=== PATIENT | female | born 1950 | race Caucasian/White ===

== ENCOUNTER → 2019-11-12 13:57 | Outpatient (BNVA) | payer OTHER, SELFPAY | PROVIDERS: Referring Provider Dermatology; Visit Provider Dermatology | DX: Z12.83 Encounter for screening for malignant neoplasm of skin (principal); Z85.828 Personal history of other malignant neoplasm of skin; L91.8 Other hypertrophic disorders of the skin; L82.1 Other seborrheic keratosis; L57.0 Actinic keratosis; L81.4 Other melanin hyperpigmentation | CPT/HCPCS: 17000; 17110; 99203 ==

== ENCOUNTER → 2019-11-27 12:02 | Outpatient (BNVA) | payer MEDICARE, SELFPAY | PROVIDERS: Visit Provider Nurse Practitioner | DX: R35.0 Frequency of micturition (principal) | CPT/HCPCS: 81000; 87086 ==

== ENCOUNTER 2022-04-15 17:35 | Emergency (ER) | payer MEDICARE, SELFPAY ==
[2022-04-15 17:39] VITALS: BP 160/97; PULSE 96; RESP 16; TEMP 36.7; O2SAT 97
--- NOTE | 2022-04-15 18:17 | USR_ITS ---
PROCEDURE INFORMATION: Exam: US Abdomen, Limited; Right Upper Quadrant Exam date and time: 04/15/2022 6:29 PM Age: 71 years old Clinical indication: Abdominal pain; Generalized; Additional info: Hyperbilirubinemia and vomiting TECHNIQUE: Imaging protocol: Real time ultrasound of the abdomen with image documentation. Limited exam focused on the right upper quadrant. COMPARISON: No relevant prior studies available. FINDINGS: Liver: Hepatic steatosis. 16 mm hepatic cysts. Gallbladder: Cholelithiasis. Biliary ducts: Common bile duct dilated to 11 mm, MRCP could further evaluate this. Pancreas: 2.4 cm hypoechoic pancreatic head mass, consider further evaluation with a contrast infused CT abdomen and pelvis. Right kidney: Normal. No mass. No hydronephrosis. US/US gall bladder [id number] IMPRESSION: 1. 2.4 cm hypoechoic pancreatic head mass, consider further evaluation with a contrast infused CT abdomen and pelvis. 2. Common bile duct dilated to 11 mm, MRCP could further evaluate this. 3. Hepatic steatosis. 4. Cholelithiasis. 5. 16 mm hepatic cysts.
--- NOTE | 2022-04-15 18:17 | CTR_ITS ---
PROCEDURE INFORMATION: Exam: CT Abdomen And Pelvis With Contrast Exam date and time: 04/15/2022 7:18 PM Age: 71 years old Clinical indication: Abdominal pain; Additional info: Hyperbilirubinemia and vomiting TECHNIQUE: Imaging protocol: Computed tomography of the abdomen and pelvis with contrast. Radiation optimization: All CT scans at this facility use at least one of these dose optimization techniques: automated exposure control; mA and/or kV adjustment per patient size (includes targeted exams where dose is matched to clinical indication); or iterative reconstruction. Contrast material: OMNI 350; Contrast volume: 100 ml; Contrast route: INTRAVENOUS (IV); REPORTING DATA: Count of CT and Cardiac NM exams in prior 12 months: This patient has received 0 known CTs and 0 known cardiac nuclear medicine studies in the 12 months prior to the current study. COMPARISON: US gall bladder [id number] 04/15/2022 6:29 PM RADIATION DOSE METRICS: Total DLP (mGy-cm): 811.3 FINDINGS: Liver: Normal. No mass. Gallbladder and bile ducts: Gallbladder is dilated with cholelithiasis. Pancreas: 27 mm pancreatic head mass with associated intra and extrahepatic biliary dilation, likely reflecting a pancreatic malignancy. This appears to contact the duodenum in stomach. Pancreatic duct is also mildly dilated. Spleen: Normal. No splenomegaly. Adrenal glands: Normal. No mass. Kidneys and ureters: Normal. No hydronephrosis. Stomach and bowel: Diverticulosis without diverticulitis. Appendix: No evidence of appendicitis. Intraperitoneal space: Unremarkable. No free air. No significant fluid collection. Vasculature: Unremarkable. No abdominal aortic aneurysm. Lymph nodes: Unremarkable. No enlarged lymph nodes. Urinary bladder: Unremarkable as visualized. Reproductive: Unremarkable as visualized. Bones/joints: T11 vertebral body likely chronic compression fracture without retropulsion of bony fragments. Soft tissues: Unremarkable. CT/CT abdomen pelvis w con* [id number] IMPRESSION: 1. 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 This appears to contact the duodenum in stomach. Pancreatic duct is also mildly dilated. 2. Gallbladder is dilated with cholelithiasis. 3. Diverticulosis without diverticulitis. 4. T11 vertebral body likely chronic compression fracture without retropulsion of bony fragments.
[2022-04-15 18:23] LABS: Basophils % 0.6 %; Eosinophils # 0.1 10^3/uL (0.0-0.8); Eosinophils % 0.9 %; Hematocrit 41.8 % (37.0-47.0); Hemoglobin 13.5 g/dL (11.5-15.3); Lymphocytes # 1.4 10^3/uL (0.8-4.8); Lymphocytes % 26.3 %; Mean Corpuscular HGB Conc 32.3 g/dL (30.0-36.0); Mean Corpuscular Hemoglobin 29.3 pg (28.0-34.0); Mean Corpuscular Volume 90.9 fl (81-99); Mean Platelet Volume 9.6 fL (7.4-10.4); Monocytes # 0.4 10^3/uL (0.2-0.9); Monocytes % 6.9 %; Neutrophils # 3.48 10^3/uL (1.8-7.7); Neutrophils % 64.7 %; Nucleated Red Blood Cells % 0 %; Platelet Count 204 10^3/cmm (130-400); Red Cell Distribution Width 14.9 % (12.1-15.1); White Blood Count 5.4 10^3/uL (4.0-10.0)
--- NOTE | 2022-04-15 18:30 | ED_ITS ---
HPI - Recheck/Abnormal Lab/Rx General: Chief Complaint: Recheck/Abnormal Lab/Rx Stated Complaint: abnormal labs Time Seen by Provider: 04/15/22 18:02 Source: patient History of Present Illness: 71-year-old female with several days of not feeling well, nausea, vomiting, and some epigastric discomfort on and off. The last 2 to 3 days, she has had a melanotic stools. No fever. She was seen in urgent care, and then told to come here due to abnormal labs . Initial visit (ago): day(s) ( several ) Initial visit for: other Returns today for: called because of abnormal lab/test Symptoms since prior visit: no new symptoms Context: called for abnormal lab result Review of Systems Const: Denies: fever(s) Eyes: Denies: change in vision ENMT: Denies: throat pain Card: Denies: chest pain or palpitations Resp: Denies: dyspnea, productive cough or non-productive cough GI: Reports: abdominal pain (Epigastric), nausea, vomiting, heartburn and early satiety; Denies: coffee ground emesis, diarrhea or hematochezia PFSH ED PFSH: Family History Other CAD (coronary artery disease) Dementia Hypertension Social History Smoking and tobacco status: never smoked Alcohol intake: current Alcohol intake frequency: few times a month Physical Exam Const: COMMON NORMALS: no acute distress GENERAL APPEARANCE: cooperative; not ill appearing and not frail appearing HENMT: COMMON NORMALS: normocephalic, atraumatic and Normal external nose present HEAD & SCALP: normocephalic and atraumatic FACE & SINUS: normal facial exam and face symmetric NOSE: Normal external nose present Eye: COMMON NORMALS: Equal, round and reactive pupils present and EOMs intact bilaterally PUPIL: Yes Equal, round and reactive pupils present Neck/C-Spine: GENERAL: Yes trachea midline Chest: CHEST: Yes Symmetrical chest wall rise Resp: COMMON NORMALS: normal respiratory effort, No retractions, No use of accessory muscles and clear to auscultation bilaterally AUSCULTATION: clear to auscultation bilaterally Cardio: COMMON NORMALS: regular rate and regular rhythm RATE: regular rate RHYTHM: regular rhythm GI: COMMON NORMALS: Normal to inspection, nondistended, normoactive bowel sounds present PALPATION: Yes Tenderness to palpation present (GI) (mild epigastric) Extremity: COMMON NORMALS: no pedal edema Neuro: [place] COMA SCALE: document GCS findings [place] coma scale eye opening: Spontaneous [place] coma scale verbal response: Orientated [place] coma scale motor response: Obey commands [place] coma scale total score: 15 SENSORY EXAM: Yes extremities (intact) Psych: COMMON NORMALS: speech normal SPEECH: Yes normal speech Skin: COMMON NORMALS: no rashes or lesions noted GENERAL SKIN EXAM: no rashes or lesions noted Course Vital Signs: Vital signs: Vital Signs Temperature 98.0 F 04/15/22 17:39 Pulse Rate 81 04/15/22 22:00 Respiratory Rate 16 04/15/22 22:00 Blood Pressure 141/87 04/15/22 22:00 Pulse Oximetry 94 04/15/22 22:00 Oxygen Delivery Me thod 04/15/22 17:39 MDM - Recheck/Abnormal Lab/Rx Medical Decision Making CBC is normal. CMP shows a bilirubin of 5.6, AST and ALT are mildly elevated. Alk phos is 371. Lipase is normal at 16. The patient has a 27 mm pancreatic head mass with associated intra and extrahepatic biliary dilatation. We do not have gastroenterology or hepatology at this institution. She was counseled on her diagnosis. With evidence of obstruction, she may need biliary stenting. We will attempt transfer to a larger [facility] where this could be possible. Patient's vital signs remained stable. Currently blood pressure 141/87, heart rate 85, saturations 95% on room air. The patient is comfortable. She has not had any vomiting here. She has received 4 mg of Zofran, and ice chips. We have called multiple facilities including [facility], [facility], and [facility] in [place] no beds are available. I spoke with the ER physician at [address] [facility] [place]. Their ER is open, and they are willing to take the patient. They have the se rvices available needed. We are unable to transport by air, due to weather conditions. She will go by ground transport when EMS is available. Lab Data 04/15/22 18:11 Radiology Impressions Abdomen/Pelvis CT 04/15/22 18:17 IMPRESSION: 1. 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 This appears to contact the duodenum in stomach. Pancreatic duct is also mildly dilated. 2. Gallbladder is dilated with cholelithiasis. 3. Diverticulosis without diverticulitis. 4. T11 vertebral body likely chronic compression fracture without retropulsion of bony fragments. Gallbladder Ultrasound 04/15/22 18:17 IMPRESSION: 1. 2.4 cm hypoechoic pancreatic head mass, consider further evaluation with a contrast infused CT abdomen and pelvis. 2. Common bile duct dilated to 11 mm, MRCP could further evaluate this. 3. Hepatic steatosis. 4. Cholelithiasis. 5. 16 mm hepatic cysts. Laboratory Results WBC 5.4 10^3/uL (4.0-10.0) 04/15/22 18:11 RBC 4.60 10^6/uL (4.1-5.3) 04/15/22 18:11 Hgb 13.5 g/dL (11.5-15.3) 04/15/22 18:11 Hct 41.8 % (37.0-47.0) 04/15/22 18:11 MCV 90.9 fl (81-99) 04/15/22 18:11 MCH 29.3 pg (28.0-34.0) 04/15/22 18:11 MCHC 32.3 g/dL (30.0-36.0) 04/15/22 18:11 RDW 14.9 % (12.1-15.1) 04/15/22 18:11 Plt Count 204 10^3/cmm (130-400) 04/15/22 18:11 MPV 9.6 fL (7.4-10.4) 04/15/22 18:11 Neut % (Auto) 64.7 % 04/15/22 18:11 Lymph % (Auto) 26.3 % 04/15/22 18:11 [place] % (Auto) 6.9 % 04/15/22 18:11 Eos % (Auto) 0.9 % 04/15/22 18:11 Baso % (Auto) 0.6 % 04/15/22 18:11 Neut # (Auto) 3.48 10^3/uL (1.8-7.7) 04/15/22 18:11 Lymph # (Auto) 1.4 10^3/uL (0.8-4.8) 04/15/22 18:11 [place] # (Auto) 0.4 10^3/uL (0.2-0.9) 04/15/22 18:11 Eos # (Auto) 0.1 10^3/uL (0.0-0.8) 04/15/22 18:11 Baso # (Auto) 0.0 10^3/uL (0.0-0.1) 04/15/22 18:11 Nucleated RBC % (auto) 0 % 04/15/22 18:11 Nucleated RBCs # 0.0 /100WBC 04/15/22 18:11 PT 12.10 SECONDS (12.1-14.9) 04/15/22 18:11 INR 0.87 (0.8-1.2) 04/15/22 18:11 APTT 26.6 SECONDS (23.9-36.7) 04/15/22 18:11 Sodium 136 mmol/L (136-145) 04/15/22 18:11 Potassium 3.6 mmol/L (3.5-5.1) 04/15/22 18:11 Chloride 98 mmol/L (98-107) 04/15/22 18:11 Carbon Dioxide 25 mmol/L (22-29) 04/15/22 18:11 Anion Gap 16.6 (5-19) 04/15/22 18:11 BUN 13 mg/dL (8-23) 04/15/22 18:11 Creatinine 0.5 mg/dL (0.5-0.9) 04/15/22 18:11 GFR Calculation 122.3 mL/min (90-130) 04/15/22 18:11 Glucose 302 mg/dL (65-115) H 04/15/22 18:11 Calculated Osmolality 293 mOsm/kg (285-295) 04/15/22 18:11 Calcium 9.3 mg/dL (8.5-10.5) 04/15/22 18:11 Total Bilirubin 5.6 mg/dL (0.15-1.2) H 04/15/22 18:11 AST 229 U/L (0-32) H 04/15/22 18:11 ALT 312 U/L (0-33) H 04/15/22 18:11 Alkaline Phosphatase 371 U/L (35-105) H 04/15/22 18:11 Total Protein 7.2 g/dL (6.6-8.7) 04/15/22 18:11 Albumin 4.6 g/dL (3.5-5.2) 04/15/22 18:11 Globulin 2.6 g/dL (1.3-4.6) 04/15/22 18:11 Lipase 16 U/L (13-60) 04/15/22 18:11 Urine Color [place] (Yellow) 04/15/22 18:11 Urine Appearance Clear (CLEAR) 04/15/22 18:11 Urine pH 5 (5-7) 04/15/22 18:11 Ur Specific [place] 1.025 (1.005-1.030) 04/15/22 18:11 Urine Protein Trace (Negative) 04/15/22 18:11 Urine Glucose (UA) 2+ (Normal) H 04/15/22 18:11 Urine Ketones Negative (Negative) 04/15/22 18:11 Urine Blood Neg (Negative) 04/15/22 18:11 Urine Nitrate Negative (Negative) 04/15/22 18:11 Urine Bilirubin 2+ (Negative) H 04/15/22 18:11 Urine Urobilinogen 4 mg/dL (Negative) H 04/15/22 18:11 Ur Leukocyte Esterase Trace (Negative) H 04/15/22 18:11 Urine RBC 5-10 /hpf (0-2) H 04/15/22 18:11 Urine WBC 0-4 /hpf (0-5) H 04/15/22 18:11 Ur Squamous Epith Cells 0-4 /hpf (0-5) H 04/15/22 18:11 Calcium Oxalate Crystal 0-4 /hpf H 04/15/22 18:11 Amorphous Sediment Not Reportable 04/15/22 18:11 Urine Bacteria Trace /hpf (NONE) 04/15/22 18:11 Urine Mucus Trace /hpf 04/15/22 18:11 SARS-CoV-2 Ag (Rapid) negative (Negative) 04/15/22 20:22 Discharge Plan Discharge Patient Disposition: Xfer Short-Term Hosp Clinical Impression: Mass of head of pancreas, Acquired hyperbilirubinemia Condition: Fair Referrals: Amarilis Urbano APRN [Primary Care Provider] - Coding Level of Care Code ED [employer] for [facility]
[2022-04-15] MEDS: ondansetron 2 mg/ML SDV 2 mL 4 MG IVP (18:36)
[2022-04-15 18:39] LABS: INR 0.87 (0.8-1.2); Partial Thromboplastin Time 26.6 SECONDS (23.9-36.7)
[2022-04-15 18:59] LABS: Alanine Aminotransferase 312 U/L (0-33); Albumin Level 4.6 g/dL (3.5-5.2); Alkaline Phosphatase 371 U/L (35-105); Anion Gap 16.6 (5-19); Aspartate Amino Transferase 229 U/L (0-32); Blood Urea Nitrogen 13 mg/dL (8-23); Calcium 9.3 mg/dL (8.5-10.5); Carbon Dioxide 25 mmol/L (22-29); Chloride 98 mmol/L (98-107); Globulin 2.6 g/dL (1.3-4.6); Glomerular Filtration Rate 122.3 mL/min (90-130); Glucose 302 mg/dL (65-115); Lipase 16 U/L (13-60); Osmolality Calculated 293 mOsm/kg (285-295); Potassium 3.6 mmol/L (3.5-5.1); Sodium 136 mmol/L (136-145); Total Bilirubin 5.6 mg/dL (0.15-1.2); Total Protein 7.2 g/dL (6.6-8.7); Urine Appearance Clear (CLEAR); Urine Color Orange (Yellow)
[2022-04-15 19:00] LABS: Add Urine Microscopic? YES; Bilirubin Urine 2+ (Negative); Blood Urine Neg (Negative); Glucose Urine UA 2+ (Normal); Ketones Urine Negative (Negative); Leukocyte Esterase Urine Trace (Negative); Nitrate Urine Negative (Negative); Protein Urine Trace (Negative); Specific Gravity, Urine 1.025 (1.005-1.030); Urobilinogen Urine 4 mg/dL (Negative); pH Urine 5 (5-7)
[2022-04-15 19:02] LABS: Add Urine Culture? No; Bacteria Urine TRACE /hpf; Calcium Oxalate Crystals Urine 0-4 /hpf; Mucus Urine TRACE /hpf; Squamous Epithelial Cell Urine 0-4 /hpf (0-5); WBC Urine 0-4 /hpf (0-5)
[2022-04-15 20:10] VITALS: BP 143/92; PULSE 80; RESP 16; O2SAT 96
[2022-04-15 20:46] LABS: SARS Covid-2 Antigen negative (Negative)
[2022-04-15 21:30] VITALS: BP 127/89; PULSE 78; RESP 16; O2SAT 97
[2022-04-15 22:00] VITALS: BP 141/87; PULSE 81; RESP 16; O2SAT 94
[2022-04-15 23:30] VITALS: BP 141/87; PULSE 73; RESP 16; O2SAT 95
[2022-04-16 00:02] LABS: Hepatitis A Antibody IgM Non-Reactive (Nonreactive); Hepatitis B Core IgM Non-Reactive (Nonreactive); Hepatitis B Surface Antigen Non-Reactive (Nonreactive); Hepatitis C Virus Antibody Non-Reactive (Nonreactive)
[2022-04-16] MEDS: ondansetron 2 mg/ML SDV 2 mL 4 MG IVP (00:06)
== END 2022-04-16 00:10 | disposition short-term general hospital (02) ==
PROVIDERS: Emergency Medicine; Emergency Provider Emergency Medicine; PCP Nurse Practitioner Family
DX: K86.89 Other specified diseases of pancreas (principal); E80.6 Other disorders of bilirubin metabolism
CPT/HCPCS: 74177; 76705; 80053; 80074; 81000; 81001; 83690; 85025; 85610; 85730; 87086; 87426; 96374; 96376; 99285; J2405; Q9967

== ENCOUNTER 2022-05-26 09:38 | Oncology outpatient (recurring) (ONCR) | payer MEDICARE, SELFPAY | END 2022-06-12 23:59 | disposition home or self-care (01) | PROVIDERS: PCP Nurse Practitioner Family; Visit Provider Internal Medicine Hematology & Oncology | DX: C25.0 Malignant neoplasm of head of pancreas (principal); K76.89 Other specified diseases of liver; R50.9 Fever, unspecified; Z79.899 Other long term (current) drug therapy; Z95.828 Presence of other vascular implants and grafts | CPT/HCPCS: 99204 ==

== ENCOUNTER 2022-05-26 11:53 | Emergency (ER) | payer MEDICARE, SELFPAY ==
[2022-05-26 12:03] VITALS: BP 119/79; PULSE 87; RESP 18; TEMP 35.8; O2SAT 95; BMI 30.7
[2022-05-26 13:06] LABS: Basophils % 0.3 %; Eosinophils # 0.1 10^3/uL (0.0-0.8); Eosinophils % 1.3 %; Hematocrit 34.5 % (37.0-47.0); Hemoglobin 11.2 g/dL (11.5-15.3); Lymphocytes # 1.5 10^3/uL (0.8-4.8); Lymphocytes % 13.9 %; Mean Corpuscular HGB Conc 32.5 g/dL (30.0-36.0); Mean Corpuscular Hemoglobin 28.9 pg (28.0-34.0); Mean Corpuscular Volume 88.9 fl (81-99); Mean Platelet Volume 9.1 fL (7.4-10.4); Monocytes # 0.6 10^3/uL (0.2-0.9); Monocytes % 5.4 %; Neutrophils # 8.42 10^3/uL (1.8-7.7); Neutrophils % 77.9 %; Nucleated Red Blood Cells % 0 %; Platelet Count 311 10^3/cmm (130-400); Red Blood Count 3.88 10^6/uL (4.1-5.3); Red Cell Distribution Width 14.9 % (12.1-15.1); White Blood Count 10.8 10^3/uL (4.0-10.0)
[2022-05-26 13:23] LABS: Alanine Aminotransferase 88 U/L (0-33); Albumin Level 3.4 g/dL (3.5-5.2); Aspartate Amino Transferase 101 U/L (0-32); Blood Urea Nitrogen 15 mg/dL (8-23); Calcium 9.3 mg/dL (8.5-10.5); Carbon Dioxide 27 mmol/L (22-29); Chloride 94 mmol/L (98-107); Creatinine Clr Calc Pharmacy 71.0014; Glomerular Filtration Rate 99.1 mL/min (90-130); Glucose 142 mg/dL (65-115); Osmolality Calculated 281 mOsm/kg (285-295); Sodium 134 mmol/L (136-145); Total Bilirubin 4.4 mg/dL (0.15-1.2); Total Protein 7.4 g/dL (6.6-8.7)
[2022-05-26 13:30] LABS: Alkaline Phosphatase 1096 U/L (35-105)
[2022-05-26 15:07] VITALS: BP 110/75; PULSE 86; RESP 16; TEMP 37.1; O2SAT 98
--- NOTE | 2022-05-26 15:51 | CTR_ITS ---
PROCEDURE INFORMATION: Exam: CT Abdomen And Pelvis With Contrast Exam date and time: 05/26/2022 4:05 PM Age: 71 years old Clinical indication: Abdominal pain; Additional info: Abd pain TECHNIQUE: Imaging protocol: Computed tomography of the abdomen and pelvis with contrast. Radiation optimization: All CT scans at this facility use at least one of these dose optimization techniques: automated exposure control; mA and/or kV adjustment per patient size (includes targeted exams where dose is matched to clinical indication); or iterative reconstruction. Contrast material: OMNI 350; Contrast volume: 100 ml; Contrast route: INTRAVENOUS (IV); REPORTING DATA: Count of CT and Cardiac NM exams in prior 12 months: This patient has received [address] and 0 known cardiac nuclear medicine studies in the 12 months prior to the current study. COMPARISON: CT abdomen pelvis w con* [id number] 04/15/2022 7:18 PM RADIATION DOSE METRICS: Total DLP (mGy-cm): 784.83 FINDINGS: Lungs: No significant infiltrate or effusion is seen within the lung bases. Liver: Small rounded hypodense focus of fluid density is seen anteromedial right lobe of the liver of 1.3 cm, likely small hepatic cysts unchanged from previous exam. A more ill-defined rounded hypodense focus is seen in the posteromedial right lobe of the liver 1 cm, measuring greater than fluid density with Hounsfield measurements. Small mass versus mildly complex cyst. This is unchanged from previous exam. A small rounded 9 mm hypodense focus is seen within the left lobe of the liver, measuring greater than fluid density with Hounsfield measurements. Mildly complex cyst versus small mass. This is unchanged from previous exam. Gallbladder and bile ducts: A common bile duct stent has been placed since prior exam. There remains biliary ductal dilatation both intrahepatic and extrahepatic when correlated with prior exam. Common hepatic/bile proximal to the stent measures up to 16 mm. Cholelithiasis with gallbladder distention again noted. Pancreas: Approximately 2.7 x 2.5 cm hypodense mass in the head of the pancreas is seen, as noted with recent prior exam. Pancreatic ductal dilatation again noted. Spleen: Normal. No splenomegaly. Adrenal glands: Normal. No mass. Kidneys and ureters: Normal. No hydronephrosis. Stomach and bowel: Unremarkable. No obstruction. No mucosal thickening. Mild colonic diverticulosis. Moderate stool content. Appendix: No evidence of appendicitis. Intraperitoneal space: Unremarkable. No free air. No significant fluid collection. Vasculature: Mild vascular calcification without aneurysmal dilatation of the abdominal aorta. Lymph nodes: Unremarkable. No enlarged lymph nodes. Urinary bladder: Suboptimal urinary bladder distention with nonspecific wall thickening. This is likely related to underdistention. Reproductive: Unremarkable as visualized. Bones/joints: Mild degenerative changes of the spine with mild compression deformity T11 as noted with prior exam. Soft tissues: Unremarkable. CT/CT abdomen pelvis w con* [id number] IMPRESSION: 1. Interval common bile duct stent since prior exam 04/15/2022 with persistent intrahepatic and extrahepatic biliary ductal dilatation in this patient with pancreatic head mass with associated pancreatic ductal dilatation. 2. No significant change otherwise with previous exam with findings of cholelithiasis with gallbladder distention and with small cysts and small complex cysts versus mass within the liver, unchanged from prior exam.
--- NOTE | 2022-05-26 16:04 | W.ED.FEVER ---
Documented by User: David Welch DO 05/30/22 08:06 HPI - Fever General: Chief Complaint: Fever Stated Complaint: pancreatic cancer sent from oncology Time Seen by Provider: 05/26/22 15:27 Source: patient Mode of arrival: ambulatory History of Present Illness: 71-year-old female presents emergency room with complaints of fever at home. She was recently diagnosed with pancreatic CA had a common bile duct stent placed that was supposed to be a temporary stent she was advised that it would not need to be retreated that would pass from the bile duct on its own. Last few days she has been having worsening fever generally not feeling well noticed increased scleral icterus. She went to see Dr. Salmon today who is her oncologist and she was noted to have potential for infection. She also recently had a port placed Dr. Salmon was worried about either an ascending cholangitis or possible port infection. She was referred to the emergency room for further evaluation. She does continue to have mild epigastric and right upper quadrant discomfort. MD elicited complaint: fever Pertinent past history: other (Pancreatic cancer) Onset (ago): day(s) Exacerbating factors: nothing Relieving factors: nothing Associated symptoms: Deny abdominal pain, flank pain, chills, chest pain, confusion, cough, diarrhea, dysuria, extremity pain, headache(s), myalgias, nasal congestion, nausea, night sweats, rash, rhinorrhea, short of breath, sinus pain, stiffness, sore throat, vaginal discharge, vomiting or weight loss Treatments prior to arrival fever: none Review of Systems Const: Denies: fever(s), chills or night sweats ENMT: Denies: nasal congestion or sinus pain Card: Denies: chest pain, palpitations, irregular heart rhythm or edema GI: Denies: abdominal pain, nausea, vomiting or diarrhea : Denies: flank pain, dysuria or vaginal discharge Musc: Denies: extremity pain Neuro: Denies: headache(s) or confusion PFSH ED PFSH: Medical History Primary pancreatic cancer Family History Other CAD (coronary artery disease) Dementia Hypertension Social History Smoking and tobacco status: never smoked Alcohol intake: current Alcohol intake frequency: few times a month Physical Exam Const: GENERAL APPEARANCE: cooperative and comfortable ORIENTATION/CONSCIOUSNESS: Yes awake, Yes oriented to person, Yes oriented to place and Yes oriented to time HENMT: COMMON NORMALS: normocephalic, atraumatic and hearing grossly normal bilaterally HEAD & SCALP: normocephalic and atraumatic Resp: COMMON NORMALS: normal respiratory effort, No retractions, No use of accessory muscles and clear to auscultation bilaterally AUSCULTATION: clear to auscultation bilaterally Cardio: COMMON NORMALS: regular rate, regular rhythm and No murmurs present (Cardio) RATE: regular rate RHYTHM: regular rhythm GI: COMMON NORMALS: Soft to palpation and No hepatosplenomegaly present AUSCULTATION: Yes normoactive bowel sounds PALPATION: Yes Soft to palpation, No Tenderness to palpation present (GI), No Guarding due to palpation present (GI) and Yes No hepatosplenomegaly present Extremity: COMMON NORMALS: normal to inspection, capillary refill normal, no clubbing, cyanosis or edema, no calf tenderness and no pedal edema Neuro: SENSORIUM/ORIENTATION: Yes oriented to person, Yes oriented to place and Yes oriented to time Skin: COMMON NORMALS: no rashes or lesions noted GENERAL SKIN EXAM: no rashes or lesions noted Course Vital Signs: Vital signs: Vital Signs Temperature 98.8 F 05/26/22 23:17 Pulse Rate 72 05/26/22 23:17 Respiratory Rate 18 05/26/22 23:17 Blood Pressure 133/86 05/26/22 23:17 Pulse Oximetry 94 05/26/22 23:17 Oxygen Delivery Me thod Room Air 05/26/22 23:17 MDM - Fever Medical Decision Making Concerned about her stent possibility of a sending cholangitis. CT confirms stent is still in place liver functions make it very concerning that is obstructed. Also there is a possibility of infection in the port. Cultures drawn initial antibiotics given through the port. Dr. Salmon had discussed patient with me prior to her arrival he would like cultures given via the port in hopes of salvaging the port. Old records pending to evaluate change in transaminases and T. bili. Care signed out to Dr. Jarrell at change of shift. See final notes for diagnosis and disposition. Patient care handoff received from Dr. Welch pending completion of ED evaluation and disposition. On reassessment patient feels similar. Unfortunately this is a very complex situation and I am told that the records are unable to be obtained from [place] [id number] or [facility] until tomorrow morning. I have high clinical concern for biliary stent malfunction or possibility of infection of the biliary stent though certainly port placement recently also is a possible source of infection. Laboratory studies show mild leukocytosis, normocytic anemia, normal platelet count. Patient does have fever here 101.1. Mild dehydration on metabolic panel. COVID is negative. No urinary symptoms. Chest x-ray reviewed without lobar consolidation or pneumothorax. Blood cultures have been obtained. Antibiotics continued antipyretic given. Other imaging also reviewed. We do not have GI or ERCP capability at our facility. Given potential for significant worsening without further evaluation or treatment patient requires emergent transfer. Initially attempted to transfer the patient to [place] [id number] however they have no bed or ED availability. I see in review of notes that patient was treated partially at [facility] and we contacted [facility]. While they are on bed divert patient will be accepted to emergency department and was accepted as an ER to ER transfer by Dr. James. The results of ED evaluation were discussed with the patient including plan for transfer due to requirement for level of care not available if discharged to prevent significant worsening/deterioration. Patient agreeable with plan. Michael Jarrell MD Emergency Medicine Lab Data 05/26/22 12:54 05/26/22 12:54 Radiology Impressions Abdomen/Pelvis CT 05/26/22 15:51 IMPRESSION: 1. Interval common bile duct stent since prior exam 04/15/2022 with persistent intrahepatic and extrahepatic biliary ductal dilatation in this patient with pancreatic head mass with associated pancreatic ductal dilatation. 2. No significant change otherwise with previous exam with findings of cholelithiasis with gallbladder distention and with small cysts and small complex cysts versus mass within the liver, unchanged from prior exam. Chest X-Ray 05/26/22 19:13 IMPRESSION: Status post port placement on the right as noted above, without pneumothorax. Laboratory Results WBC 10.8 10^3/uL (4.0-10.0) H 05/26/22 12:54 RBC 3.88 10^6/uL (4.1-5.3) L 05/26/22 12:54 Hgb 11.2 g/dL (11.5-15.3) L 05/26/22 12:54 Hct 34.5 % (37.0-47.0) L 05/26/22 12:54 MCV 88.9 fl (81-99) 05/26/22 12:54 MCH 28.9 pg (28.0-34.0) 05/26/22 12:54 MCHC 32.5 g/dL (30.0-36.0) 05/26/22 12:54 RDW 14.9 % (12.1-15.1) 05/26/22 12:54 Plt Count 311 10^3/cmm (130-400) 05/26/22 12:54 MPV 9.1 fL (7.4-10.4) 05/26/22 12:54 Neut % (Auto) 77.9 % 05/26/22 12:54 Lymph % (Auto) 13.9 % 05/26/22 12:54 [place] % (Auto) 5.4 % 05/26/22 12:54 Eos % (Auto) 1.3 % 05/26/22 12:54 Baso % (Auto) 0.3 % 05/26/22 12:54 Neut # (Auto) 8.42 10^3/uL (1.8-7.7) H 05/26/22 12:54 Lymph # (Auto) 1.5 10^3/uL (0.8-4.8) 05/26/22 12:54 [place] # (Auto) 0.6 10^3/uL (0.2-0.9) 05/26/22 12:54 Eos # (Auto) 0.1 10^3/uL (0.0-0.8) 05/26/22 12:54 Baso # (Auto) 0.0 10^3/uL (0.0-0.1) 05/26/22 12:54 Nucleated RBC % (auto) 0 % 05/26/22 12:54 Nucleated RBCs # 0.0 /100WBC 05/26/22 12:54 Sodium 134 mmol/L (136-145) L 05/26/22 12:54 Potassium 4.0 mmol/L (3.5-5.1) 05/26/22 12:54 Chloride 94 mmol/L (98-107) L 05/26/22 12:54 Carbon Dioxide 27 mmol/L (22-29) 05/26/22 12:54 Anion Gap 17.0 (5-19) 05/26/22 12:54 BUN 15 mg/dL (8-23) 05/26/22 12:54 Creatinine 0.6 mg/dL (0.5-0.9) 05/26/22 12:54 GFR Calculation 99.1 mL/min (90-130) 05/26/22 12:54 Glucose 142 mg/dL (65-115) H 05/26/22 12:54 Calculated Osmolality 281 mOsm/kg (285-295) L 05/26/22 12:54 Lactic Acid 0.6 mmol/L (0.5-2.2) 05/26/22 19:39 Calcium 9.3 mg/dL (8.5-10.5) 05/26/22 12:54 Magnesium 2.1 mg/dL (1.7-2.3) 05/26/22 12:27 Total Bilirubin 4.4 mg/dL (0.15-1.2) H 05/26/22 12:54 AST 101 U/L (0-32) H 05/26/22 12:54 ALT 88 U/L (0-33) H 05/26/22 12:54 Alkaline Phosphatase 1096 U/L (35-105) H* 05/26/22 12:54 Total Protein 7.4 g/dL (6.6-8.7) 05/26/22 12:54 Albumin 3.4 g/dL (3.5-5.2) L 05/26/22 12:54 Globulin 4.0 g/dL (1.3-4.6) 05/26/22 12:54 Lipase 34 U/L (13-60) 05/26/22 12:27 SARS-CoV-2 Ag (Rapid) negative (Negative) 05/26/22 19:50 Discharge Plan Discharge Patient Disposition: Transfer to ED Clinical Impression: Fever of unknown origin, Obstruction of biliary stent Condition: Stable Prescriptions: No Action sertraline 100 mg tablet 100 mg PO DAILY pantoprazole [Protonix] 40 mg tablet,delayed release (DR/EC) 40 mg PO DAILY ondansetron HCl 4 mg tablet 4 mg PO Q8H oxycodone 5 mg capsule 5 mg PO Q6H PRN (Reason: Pain) acetaminophen 325 mg Tablet 325 mg PO QID PRN (Reason: Pain) Referrals: Amarilis Urbano APRN [Primary Care Provider] - Sign Out Sign Out Data: Patient Sign Out occurred on 05/26/22 at 18:41. Patient's care was discussed, and care was transferred from to Michael Jarrell MD. 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 [employer] Documented by User: Michael Jarrell MD 06/02/22 03:41 HPI - Fever General: Chief Complaint: Fever Stated Complaint: pancreatic cancer sent from oncology Time Seen by Provider: 05/26/22 15:27 PFSH ED PFSH: Medical History Primary pancreatic cancer Family History Other CAD (coronary artery disease) Dementia Hypertension Social History Smoking and tobacco status: never smoked Alcohol intake: current Alcohol intake frequency: few times a month Course Vital Signs: Vital signs: Vital Signs Temperature 98.8 F 05/26/22 23:17 Pulse Rate 72 05/26/22 23:17 Respiratory Rate 18 05/26/22 23:17 Blood Pressure 133/86 05/26/22 23:17 Pulse Oximetry 94 05/26/22 23:17 Oxygen Delivery Me thod Room Air 05/26/22 23:17 MDM - Fever Medical Decision Making Patient care handoff received from Dr. Welch pending completion of ED evaluation and disposition. On reassessment patient feels similar. Unfortunately this is a very complex situation and I am told that the records are unable to be obtained from [facility] or [facility] until tomorrow morning. I have high clinical concern for biliary stent malfunction or possibility of infection of the biliary stent though certainly port placement recently also is a possible source of infection. Laboratory studies show mild leukocytosis, normocytic anemia, normal platelet count. Patient does have fever here 101.1. Mild dehydration on metabolic panel. COVID is negative. No urinary symptoms. Chest x-ray reviewed without lobar consolidation or pneumothorax. Blood cultures have been obtained. Antibiotics continued antipyretic given. Other imaging also reviewed. We do not have GI or ERCP capability at our facility. Given potential for significant worsening without further evaluation or treatment patient requires emergent transfer. Initially attempted to transfer the patient to [place] [address] however they have no bed or ED availability. I see in review of notes that patient was treated partially at [facility] and we contacted [facility]. While they are on bed divert patient will be accepted to emergency department and was accepted as an ER to ER transfer by Dr. James. The results of ED evaluation were discussed with the patient including plan for transfer due to requirement for level of care not available if discharged to prevent significant worsening/deterioration. Patient agreeable with plan. Michael Jarrell MD Emergency Medicine Lab Data 05/26/22 12:54 05/26/22 12:54 Radiology Impressions Abdomen/Pelvis CT 05/26/22 15:51 IMPRESSION: 1. Interval common bile duct stent since prior exam 04/15/2022 with persistent intrahepatic and extrahepatic biliary ductal dilatation in this patient with pancreatic head mass with associated pancreatic ductal dilatation. 2. No significant change otherwise with previous exam with findings of cholelithiasis with gallbladder distention and with small cysts and small complex cysts versus mass within the liver, unchanged from prior exam. Chest X-Ray 05/26/22 19:13 IMPRESSION: Status post port placement on the right as noted above, without pneumothorax. Laboratory Results WBC 10.8 10^3/uL (4.0-10.0) H 05/26/22 12:54 RBC 3.88 10^6/uL (4.1-5.3) L 05/26/22 12:54 Hgb 11.2 g/dL (11.5-15.3) L 05/26/22 12:54 Hct 34.5 % (37.0-47.0) L 05/26/22 12:54 MCV 88.9 fl (81-99) 05/26/22 12:54 MCH 28.9 pg (28.0-34.0) 05/26/22 12:54 MCHC 32.5 g/dL (30.0-36.0) 05/26/22 12:54 RDW 14.9 % (12.1-15.1) 05/26/22 12:54 Plt Count 311 10^3/cmm (130-400) 05/26/22 12:54 MPV 9.1 fL (7.4-10.4) 05/26/22 12:54 Neut % (Auto) 77.9 % 05/26/22 12:54 Lymph % (Auto) 13.9 % 05/26/22 12:54 [place] % (Auto) 5.4 % 05/26/22 12:54 Eos % (Auto) 1.3 % 05/26/22 12:54 Baso % (Auto) 0.3 % 05/26/22 12:54 Neut # (Auto) 8.42 10^3/uL (1.8-7.7) H 05/26/22 12:54 Lymph # (Auto) 1.5 10^3/uL (0.8-4.8) 05/26/22 12:54 [place] # (Auto) 0.6 10^3/uL (0.2-0.9) 05/26/22 12:54 Eos # (Auto) 0.1 10^3/uL (0.0-0.8) 05/26/22 12:54 Baso # (Auto) 0.0 10^3/uL (0.0-0.1) 05/26/22 12:54 Nucleated RBC % (auto) 0 % 05/26/22 12:54 Nucleated RBCs # 0.0 /100WBC 05/26/22 12:54 Sodium 134 mmol/L (136-145) L 05/26/22 12:54 Potassium 4.0 mmol/L (3.5-5.1) 05/26/22 12:54 Chloride 94 mmol/L (98-107) L 05/26/22 12:54 Carbon Dioxide 27 mmol/L (22-29) 05/26/22 12:54 Anion Gap 17.0 (5-19) 05/26/22 12:54 BUN 15 mg/dL (8-23) 05/26/22 12:54 Creatinine 0.6 mg/dL (0.5-0.9) 05/26/22 12:54 GFR Calculation 99.1 mL/min (90-130) 05/26/22 12:54 Glucose 142 mg/dL (65-115) H 05/26/22 12:54 Calculated Osmolality 281 mOsm/kg (285-295) L 05/26/22 12:54 Lactic Acid 0.6 mmol/L (0.5-2.2) 05/26/22 19:39 Calcium 9.3 mg/dL (8.5-10.5) 05/26/22 12:54 Magnesium 2.1 mg/dL (1.7-2.3) 05/26/22 12:27 Total Bilirubin 4.4 mg/dL (0.15-1.2) H 05/26/22 12:54 AST 101 U/L (0-32) H 05/26/22 12:54 ALT 88 U/L (0-33) H 05/26/22 12:54 Alkaline Phosphatase 1096 U/L (35-105) H* 05/26/22 12:54 Total Protein 7.4 g/dL (6.6-8.7) 05/26/22 12:54 Albumin 3.4 g/dL (3.5-5.2) L 05/26/22 12:54 Globulin 4.0 g/dL (1.3-4.6) 05/26/22 12:54 Lipase 34 U/L (13-60) 05/26/22 12:27 SARS-CoV-2 Ag (Rapid) negative (Negative) 05/26/22 19:50 Discharge Plan Discharge Patient Disposition: Transfer to ED Clinical Impression: Fever of unknown origin, Obstruction of biliary stent Condition: Stable Prescriptions: No Action sertraline 100 mg tablet 100 mg PO DAILY pantoprazole [Protonix] 40 mg tablet,delayed release (DR/EC) 40 mg PO DAILY ondansetron HCl 4 mg tablet 4 mg PO Q8H oxycodone 5 mg capsule 5 mg PO Q6H PRN (Reason: Pain) acetaminophen 325 mg Tablet 325 mg PO QID PRN (Reason: Pain) Referrals: Amarilis Urbano APRN [Primary Care Provider] - Sign Out Sign Out Data: Patient Sign Out occurred on 05/26/22 at 18:41. Patient's care was discussed, and care was transferred from to Michael Jarrell MD. 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
[2022-05-26] MEDS: iohexol 350 mg/mL 500 mL Btl (per mL) IV ×2 (16:09→16:26)
[2022-05-26 16:31] LABS: Lipase 34 U/L (13-60); Magnesium 2.1 mg/dL (1.7-2.3)
[2022-05-26] MEDS: meropenem 1,000 MG in sodium chloride 0.9% (plus) 50 ML 100 MG IV (17:14)
[2022-05-26 17:26] VITALS: BP 104/80; PULSE 83; RESP 14; O2SAT 100
[2022-05-26 18:21] VITALS: BP 104/80; PULSE 80; RESP 14; O2SAT 94
[2022-05-26 19:04] VITALS: BP 143/77; PULSE 81; RESP 18; TEMP 38.4; O2SAT 94
--- NOTE | 2022-05-26 19:13 | XRR_ITS ---
PROCEDURE INFORMATION: Exam: XR Chest Exam date and time: 05/26/2022 7:21 PM Age: 71 years old Clinical indication: Prior surgery; Surgery date: 6+ months; Surgery type: Port placement; Patient HX: C/O fever. Had port placed 05/18/22. ; Additional info: Fever, port placement TECHNIQUE: Imaging protocol: Radiologic exam of the chest. Views: 1 view. COMPARISON: CT abdomen pelvis w con* [id number] 05/26/2022 4:05 PM FINDINGS: Tubes, catheters and devices: Central venous access catheter or port is seen on the right with tip of the catheter at the expected level of the brachiocephalic vein/superior vena cava junction region Lungs: Suggestion of calcified node or granuloma inferior to the left hilum of approximally 2.5 cm. No focal infiltrate or consolidation. Pleural spaces: Unremarkable. No pleural effusion. No pneumothorax. Heart/Mediastinum: Unremarkable. No cardiomegaly. Bones/joints: Mild old healed rib fracture deformity 6 lateral rib on the left. XR/XR chest 1V portable [id number] IMPRESSION: Status post port placement on the right as noted above, without pneumothorax.
[2022-05-26] MEDS: ketorolac 30 mg/mL INJ 15 MG IVP (20:08)
[2022-05-26 20:13] LABS: Lactic Sepsis W/Reflex 0.6 mmol/L (0.5-2.2)
[2022-05-26 20:33] LABS: SARS Covid-2 Antigen negative (Negative)
[2022-05-26 23:17] VITALS: BP 133/86; PULSE 72; RESP 18; TEMP 37.1; O2SAT 94
[2022-05-27 09:01] LABS: Acinetobacter baumannii Not Detected (NOT DETECT); Bacteroides fragilis Not Detected (NOT DETECT); CTX-M Not Detected (NOT DETECT); Citrobacter Not Detected (NOT DETECT); Cronobacter sakazakii Not Detected (NOT DETECT); Enterobacter cloacae complex Not Detected (NOT DETECT); Enterobacter non cloacae Not Detected (NOT DETECT); Fusobacterium necrophorum Not Detected (NOT DETECT); Fusobacterium nucleatum Not Detected (NOT DETECT); Haemophilus influenzae Not Detected (NOT DETECT); IMP Resistance Gene Not Detected (NOT DETECT); KPC Resistance Gene Not Detected (NOT DETECT); Klebsiella pneumoniae group Detected (NOT DETECT); Morganella morganii Not Detected (NOT DETECT); NDM Resistance Gene Not Detected (NOT DETECT); Neisseria meningitidis Not Detected (NOT DETECT); OXA Resistance Gene Not Detected (NOT DETECT); Pan Candida Not Detected (NOT DETECT); Pan Gram-Positive Not Detected (NOT DETECT); Proteus mirabilis Not Detected (NOT DETECT); Pseudomonas aeruginosa Not Detected (NOT DETECT); Salmonella Not Detected (NOT DETECT); Serratia Not Detected (NOT DETECT); Serratia marcescens Not Detected (NOT DETECT); Stenotrophomonas maltophilia Not Detected (NOT DETECT); VIM Resistance Gene Not Detected (NOT DETECT)
== END 2022-05-27 00:28 ==
PROVIDERS: Family Medicine; Emergency Provider Emergency Medicine; PCP Nurse Practitioner Family
DX: R50.9 Fever, unspecified (principal); T85.590A Other mechanical complication of bile duct prosthesis, initial encounter; C25.9 Malignant neoplasm of pancreas, unspecified; Y82.8 Other medical devices associated with adverse incidents
CPT/HCPCS: 36415; 71045; 74177; 80053; 83605; 83690; 83735; 85025; 87040; 87077; 87150; 87186; 87205; 87426; 96365; 96375; 99204; 99285; J1885; J2185; Q9967

== ENCOUNTER 2022-06-11 05:37 | Outpatient (CLI) | payer MEDICARE, SELFPAY ==
--- NOTE | 2022-06-11 09:00 | PETR_ITS ---
PROCEDURE INFORMATION: Exam: PET/CT Skull Base to Mid-thigh Exam date and time: 06/11/2022 9:05 AM Age: 71 years old Clinical indication: Condition or disease; Primary cancer: Pancreatic cancer; Initial oncological staging assessment LABS AND CLINICAL REPORTS: Glucose: 179 mg/dl Treatment strategy for malignancy (PET staging): Initial Staging (PI) TECHNIQUE: Imaging protocol: Following at least four-hour fasting and following the injection of radiopharmaceutical, low dose CT images were obtained. Then, PET images were obtained. Attenuation corrected images were constructed using the CT scan. Fused images of PET and CT were reviewed. The standardized uptake values (SUV) reported below are maximum values within a region of interest, expressed in gm/ml. Exam includes orbital meatal line to mid-thigh. Radiopharmaceutical: 11.16 mCi F-18 FDG (Fluorodeoxyglucose), IV. Time of imaging post radiopharmaceutical administration: 1 hour Injection site: Right antecubital vein COMPARISON: CT abdomen pelvis w con 05/26/2022 and 04/15/2022 FINDINGS: Tubes, catheters and devices: Port catheter placed via the right internal jugular vein terminates in the superior vena cava. Two endoscopically placed biliary stents are in place within the common bile duct Brain: Visualized brain has normal physiologic uptake. Pharynx: No abnormal uptake. Larynx: No abnormal uptake. Thyroid: No abnormal uptake. 1.1 cm hypodense right thyroid nodule is compatible with benign finding. Lungs, pleura and trachea: No abnormal uptake. No lung nodules or masses. No pleural effusion. Heart: Normal physiologic uptake. Mediastinal space: No abnormal uptake. Liver: No abnormal uptake. There are stable simple hepatic cysts in the segments 4 and 5 measuring 1.2 cm and 1 cm respectively. 1.2 cm hypodense focus in the lateral segment of the left lobe on image 71 is not FDG avid likely representing another benign finding, cyst or hemangioma. Gallbladder and bile ducts: No abnormal uptake. There is expected pneumobilia with no abnormal biliary dilatation. There are no signs of acute cholecystitis. There is stable 2 cm noncalcified gallstone in the gallbladder. Pancreas: The primary tumor in the pancreas noted as is about 3.4 x 3 cm mass in the upper head extending into the neck with the highest uptake of 7.9 SUV. The body and the tail of the gland are trophic. Spleen: No abnormal uptake. Specifically, there is no abnormal uptake in the lower most aspect of the spleen where 1.5 cm hypoenhancing lesion documented on prior contrast enhanced CT of abdomen pelvis on 05/26/2022 and 04/15/2022 representing benign finding, likely hemangioma. No splenomegaly. Adrenal glands: No abnormal uptake. No nodules. Kidneys and ureters: Normal physiologic uptake. No hydronephrosis. Stomach and bowel: 0.8 cm focus of high uptake 6.2 SUV in the mid abdomen interposed on small bowel on image 107 shows no obvious corresponding CT abnormality. No abnormal dilatation of the bowel. Mild diverticulosis in the sigmoid colon. Vasculature: No abnormal uptake. No aortic aneurysm. Lymph nodes: No abnormal uptake. No lymphadenopathy in the head, neck, chest, abdomen, pelvis, and extremities. Sequela of exposure to granulomatous disease with 1.5 cm calcified lymph node in the left hilum Bones/joints: No abnormal uptake in the visualized axial and appendicular skeleton. Stable mild chronic compression of T11. Soft tissues: No abnormal uptake. [facility] [id number] IMPRESSION: Primary malignancy noted as about 3.4 cm mass in the upper aspect of the head of the pancreas with the highest uptake of 7.9 SUV. 0.8 cm focus of increased uptake of 6.2 SUV interposed in the small bowel loop in the mid abdomen with no corresponding CT abnormality is indeterminate. Otherwise there is no extra pancreatic FDG avid findings concerning for metastasis. Benign incidental findings (small right thyroid nodule, hepatic cysts, cholelithiasis, calcified lymph node in the left hilum, chronic compression of T11). Hypoenhancing focus in the lower pole of the spleen documented on prior contrast enhanced exam is is not FDG avid compatible with benign finding, likely hemangioma.
== END 2022-06-11 05:38 | disposition home or self-care (01) ==
PROVIDERS: PCP Nurse Practitioner Family; Visit Provider Internal Medicine Hematology & Oncology
DX: C25.0 Malignant neoplasm of head of pancreas (principal); E04.1 Nontoxic single thyroid nodule; K76.89 Other specified diseases of liver; K80.20 Calculus of gallbladder without cholecystitis without obstruction
CPT/HCPCS: 78815; A9552

== ENCOUNTER → 2022-06-29 07:10 | Outpatient (BNVA) | payer MEDICARE, SELFPAY | PROVIDERS: PCP Nurse Practitioner Family; Visit Provider Nurse Practitioner | DX: Z53.9 Procedure and treatment not carried out, unspecified reason (principal) | CPT/HCPCS: 99215 ==

== ENCOUNTER 2022-07-13 08:00 | Oncology outpatient (recurring) (ONCR) | payer MEDICARE, SELFPAY ==
[2022-06-20 08:05] LABS: Basophils # 0.1 10^3/uL (0.0-0.1); Basophils % 0.7 %; Eosinophils # 0.3 10^3/uL (0.0-0.8); Eosinophils % 4.6 %; Hematocrit 36.9 % (37.0-47.0); Lymphocytes % 28.8 %; Mean Corpuscular HGB Conc 32.5 g/dL (30.0-36.0); Mean Corpuscular Hemoglobin 29.1 pg (28.0-34.0); Mean Corpuscular Volume 89.3 fl (81-99); Mean Platelet Volume 8.9 fL (7.4-10.4); Monocytes # 0.4 10^3/uL (0.2-0.9); Monocytes % 5.3 %; Neutrophils # 4.08 10^3/uL (1.8-7.7); Neutrophils % 60.3 %; Nucleated Red Blood Cells % 0 %; Platelet Count 198 10^3/cmm (130-400); Red Blood Count 4.13 10^6/uL (4.1-5.3); Red Cell Distribution Width 15.3 % (12.1-15.1); White Blood Count 6.8 10^3/uL (4.0-10.0)
[2022-06-20 08:38] LABS: Alanine Aminotransferase 21 U/L (0-33); Albumin Level 4.2 g/dL (3.5-5.2); Alkaline Phosphatase 206 U/L (35-105); Anion Gap 16.3 (5-19); Blood Urea Nitrogen 16 mg/dL (8-23); Calcium 8.9 mg/dL (8.5-10.5); Cancer Antigen 19 9 498.2 U/mL (0-35); Carbon Dioxide 24 mmol/L (22-29); Chloride 103 mmol/L (98-107); Globulin 2.7 g/dL (1.3-4.6); Glomerular Filtration Rate 99.1 mL/min (90-130); Glucose 156 mg/dL (65-115); Osmolality Calculated 292 mOsm/kg (285-295); Potassium 4.3 mmol/L (3.5-5.1); Sodium 139 mmol/L (136-145); Total Bilirubin 0.8 mg/dL (0.15-1.2); Total Protein 6.9 g/dL (6.6-8.7)
[2022-06-20 08:55] LABS: Aspartate Amino Transferase 23 U/L (0-32)
[2022-06-29 07:41] VITALS: BP 111/73; PULSE 72; TEMP 36.9; O2SAT 97
[2022-06-29 08:03] LABS: Basophils % 0.5 %; Eosinophils # 0.2 10^3/uL (0.0-0.8); Eosinophils % 3.4 %; Hemoglobin 11.5 g/dL (11.5-15.3); Lymphocytes # 1.8 10^3/uL (0.8-4.8); Lymphocytes % 28.1 %; Mean Corpuscular HGB Conc 31.9 g/dL (30.0-36.0); Mean Corpuscular Hemoglobin 28.9 pg (28.0-34.0); Mean Corpuscular Volume 90.5 fl (81-99); Mean Platelet Volume 9.2 fL (7.4-10.4); Monocytes # 0.4 10^3/uL (0.2-0.9); Neutrophils # 4.04 10^3/uL (1.8-7.7); Neutrophils % 61.7 %; Nucleated Red Blood Cells % 0 %; Platelet Count 173 10^3/cmm (130-400); Red Blood Count 3.98 10^6/uL (4.1-5.3); Red Cell Distribution Width 14.9 % (12.1-15.1); White Blood Count 6.5 10^3/uL (4.0-10.0)
[2022-06-29 08:47] LABS: Alanine Aminotransferase 19 U/L (0-33); Albumin Level 4.2 g/dL (3.5-5.2); Alkaline Phosphatase 149 U/L (35-105); Anion Gap 14.8 (5-19); Aspartate Amino Transferase 21 U/L (0-32); Blood Urea Nitrogen 15 mg/dL (8-23); Calcium 8.8 mg/dL (8.5-10.5); Cancer Antigen 19 9 455.4 U/mL (0-35); Carbon Dioxide 26 mmol/L (22-29); Chloride 102 mmol/L (98-107); Globulin 2.5 g/dL (1.3-4.6); Glomerular Filtration Rate 99.1 mL/min (90-130); Glucose 251 mg/dL (65-115); Osmolality Calculated 295 mOsm/kg (285-295); Potassium 4.8 mmol/L (3.5-5.1); Sodium 138 mmol/L (136-145); Total Bilirubin 0.6 mg/dL (0.15-1.2); Total Protein 6.7 g/dL (6.6-8.7)
[2022-06-29] MEDS: dextrose 5% 250 ML 100 ML IV (10:35)
[2022-06-29] MEDS: palonosetron 0.25 mg/5 mL SDV IVP (10:37)
[2022-06-29] MEDS: DEXTROSE 5% IV (11:03)
[2022-06-29] MEDS: OXALIPLATIN IV (11:03)
[2022-06-29] MEDS: irinotecan 300 MG, irinotecan 40 MG in dextrose 5% 250 ML 178 MG IV (14:10)
[2022-06-29] MEDS: atropine 1 mg/mL SDV 1 mL 0.4 MG IV (14:13)
[2022-06-29 15:00] VITALS: BP 136/73; PULSE 76; TEMP 36.7; O2SAT 97
[2022-06-29] MEDS: sodium chloride 0.9% 250 ML IV (15:14)
[2022-06-29] MEDS: fluorouraciL 50 mg/ml MDV 100 mL 770 MG IVP (16:43)
[2022-06-29] MEDS: fluorouraciL 4,650 MG, elastomeric pump 1 PUMP in sodium chloride 0.9% (100 ml) 0 ML IV (16:43)
[2022-06-29 17:14] VITALS: BP 127/75; PULSE 72; TEMP 37.2; O2SAT 95
[2022-07-01 11:31] VITALS: BP 111/72; PULSE 70; TEMP 37.2; O2SAT 98
[2022-07-06 07:34] VITALS: BP 127/83; PULSE 77; RESP 16; TEMP 35.9; O2SAT 98
[2022-07-06 07:53] LABS: Basophils % 0.2 %; Eosinophils # 0.2 10^3/uL (0.0-0.8); Hematocrit 35.6 % (37.0-47.0); Hemoglobin 11.9 g/dL (11.5-15.3); Lymphocytes # 2.1 10^3/uL (0.8-4.8); Lymphocytes % 32.4 %; Mean Corpuscular HGB Conc 33.4 g/dL (30.0-36.0); Mean Corpuscular Hemoglobin 29.7 pg (28.0-34.0); Mean Corpuscular Volume 88.8 fl (81-99); Mean Platelet Volume 9.2 fL (7.4-10.4); Monocytes # 0.3 10^3/uL (0.2-0.9); Monocytes % 4.1 %; Neutrophils # 3.83 10^3/uL (1.8-7.7); Nucleated Red Blood Cells % 0 %; Platelet Count 149 10^3/cmm (130-400); Red Blood Count 4.01 10^6/uL (4.1-5.3); Red Cell Distribution Width 14.1 % (12.1-15.1); White Blood Count 6.4 10^3/uL (4.0-10.0)
[2022-07-06 08:15] LABS: Alanine Aminotransferase 17 U/L (0-33); Albumin Level 4.3 g/dL (3.5-5.2); Alkaline Phosphatase 142 U/L (35-105); Anion Gap 13.1 (5-19); Aspartate Amino Transferase 21 U/L (0-32); Blood Urea Nitrogen 18 mg/dL (8-23); Calcium 9.1 mg/dL (8.5-10.5); Carbon Dioxide 25 mmol/L (22-29); Chloride 102 mmol/L (98-107); Globulin 2.5 g/dL (1.3-4.6); Glomerular Filtration Rate 99.1 mL/min (90-130); Glucose 142 mg/dL (65-115); Osmolality Calculated 286 mOsm/kg (285-295); Potassium 4.1 mmol/L (3.5-5.1); Sodium 136 mmol/L (136-145); Total Bilirubin 0.5 mg/dL (0.15-1.2); Total Protein 6.8 g/dL (6.6-8.7)
[2022-07-13 08:12] VITALS: BP 119/75; PULSE 73; RESP 18; TEMP 36.3
[2022-07-13 08:26] LABS: Hemoglobin 10.4 g/dL (11.5-15.3); Nucleated Red Blood Cells % 0 %
[2022-07-13 08:31] LABS: Basophils % 0.2 %; Eosinophils # 0.1 10^3/uL (0.0-0.8); Eosinophils % 2.7 %; Hematocrit 31.6 % (37.0-47.0); Lymphocytes # 1.4 10^3/uL (0.8-4.8); Lymphocytes % 30.3 %; Mean Corpuscular HGB Conc 32.9 g/dL (30.0-36.0); Mean Corpuscular Hemoglobin 29.3 pg (28.0-34.0); Monocytes # 0.4 10^3/uL (0.2-0.9); Monocytes % 7.6 %; Platelet Count 149 10^3/cmm (130-400); Red Blood Count 3.55 10^6/uL (4.1-5.3); Red Cell Distribution Width 14.8 % (12.1-15.1); White Blood Count 4.8 10^3/uL (4.0-10.0)
[2022-07-13 08:57] LABS: Alanine Aminotransferase 23 U/L (0-33); Albumin Level 3.8 g/dL (3.5-5.2); Alkaline Phosphatase 130 U/L (35-105); Anion Gap 10.8 (5-19); Aspartate Amino Transferase 24 U/L (0-32); Blood Urea Nitrogen 7 mg/dL (8-23); Cancer Antigen 19 9 422.2 U/mL (0-35); Carbon Dioxide 26 mmol/L (22-29); Chloride 106 mmol/L (98-107); Globulin 2.1 g/dL (1.3-4.6); Glomerular Filtration Rate 98.8 mL/min (90-130); Glucose 196 mg/dL (65-115); Osmolality Calculated 291 mOsm/kg (285-295); Potassium 3.8 mmol/L (3.5-5.1); Sodium 139 mmol/L (136-145); Total Bilirubin 0.4 mg/dL (0.15-1.2); Total Protein 5.9 g/dL (6.6-8.7)
[2022-07-13] MEDS: dextrose 5% 250 ML 100 ML IV (09:56)
[2022-07-13] MEDS: palonosetron 0.25 mg/5 mL SDV IVP (09:58)
[2022-07-13] MEDS: OXALIPLATIN IV (11:00)
[2022-07-13] MEDS: DEXTROSE 5% IV (11:00)
[2022-07-13 13:30] VITALS: BP 110/60; PULSE 81; TEMP 36.6; O2SAT 94
[2022-07-13] MEDS: atropine 1 mg/mL SDV 1 mL 0.4 MG IV (13:57)
[2022-07-13 14:00] VITALS: BP 103/53; PULSE 67; TEMP 36.5; O2SAT 93
[2022-07-13] MEDS: irinotecan 300 MG, irinotecan 40 MG in dextrose 5% 250 ML 178 MG IV (14:06)
[2022-07-13 14:30] VITALS: BP 121/71; PULSE 82; TEMP 36.4; O2SAT 92
[2022-07-13] MEDS: fluorouraciL 4,650 MG, elastomeric pump 1 PUMP in sodium chloride 0.9% (100 ml) 0 ML IV (15:58)
[2022-07-13] MEDS: fluorouraciL 50 mg/ml MDV 100 mL 770 MG IVP (15:58)
[2022-07-13 16:10] VITALS: BP 145/85; PULSE 89; TEMP 37.3; O2SAT 97
== END 2022-07-13 23:59 | disposition home or self-care (01) ==
PROVIDERS: Nurse Practitioner; PCP Nurse Practitioner Family; Visit Provider Internal Medicine Hematology & Oncology
DX: Z51.11 Encounter for antineoplastic chemotherapy (principal); C25.0 Malignant neoplasm of head of pancreas; C78.5 Secondary malignant neoplasm of large intestine and rectum; C78.7 Secondary malignant neoplasm of liver and intrahepatic bile duct; C77.8 Secondary and unspecified malignant neoplasm of lymph nodes of multiple regions; C79.89 Secondary malignant neoplasm of other specified sites; Z79.899 Other long term (current) drug therapy
CPT/HCPCS: 80053; 85025; 86301; 96368; 96375; 96413; 96415; 96416; 96417; 96523; 99213; 99214; J0461; J0640; J1100; J1642; J2469; J7050; J7060; J9190; J9206; J9263

== ENCOUNTER → 2022-07-27 08:05 | Outpatient (BNVA) | payer MEDICARE, SELFPAY | PROVIDERS: PCP Nurse Practitioner Family; Visit Provider Nurse Practitioner | DX: Z53.9 Procedure and treatment not carried out, unspecified reason (principal) | CPT/HCPCS: 99214 ==

== ENCOUNTER 2022-08-12 11:00 | Oncology outpatient (recurring) (ONCR) | payer MEDICARE, SELFPAY ==
[2022-07-15 11:33] VITALS: BP 115/73; PULSE 61; RESP 18; TEMP 36.9; O2SAT 98
[2022-07-27 07:42] VITALS: BP 116/79; PULSE 83; RESP 18; TEMP 36.3; O2SAT 98
[2022-07-27] MEDS: alteplase 1 mg/mL SDV 2 mL 2 MG INTRACATH (08:10)
[2022-07-27 08:21] LABS: Basophils % 0.2 %; Eosinophils # 0.1 10^3/uL (0.0-0.8); Eosinophils % 1.6 %; Hematocrit 33.8 % (37.0-47.0); Hemoglobin 11.1 g/dL (11.5-15.3); Lymphocytes # 1.4 10^3/uL (0.8-4.8); Lymphocytes % 28.8 %; Mean Corpuscular HGB Conc 32.8 g/dL (30.0-36.0); Mean Corpuscular Hemoglobin 29.6 pg (28.0-34.0); Mean Corpuscular Volume 90.1 fl (81-99); Mean Platelet Volume 8.6 fL (7.4-10.4); Monocytes # 0.4 10^3/uL (0.2-0.9); Neutrophils # 2.95 10^3/uL (1.8-7.7); Neutrophils % 60.4 %; Nucleated Red Blood Cells % 0 %; Platelet Count 137 10^3/cmm (130-400); Red Blood Count 3.75 10^6/uL (4.1-5.3); Red Cell Distribution Width 15.1 % (12.1-15.1); White Blood Count 4.9 10^3/uL (4.0-10.0)
[2022-07-27 09:05] LABS: Alanine Aminotransferase 29 U/L (0-33); Alkaline Phosphatase 178 U/L (35-105); Anion Gap 13.2 (5-19); Aspartate Amino Transferase 37 U/L (0-32); Blood Urea Nitrogen 14 mg/dL (8-23); Calcium 8.7 mg/dL (8.5-10.5); Cancer Antigen 19 9 399.2 U/mL (0-35); Carbon Dioxide 27 mmol/L (22-29); Chloride 102 mmol/L (98-107); Globulin 2.4 g/dL (1.3-4.6); Glomerular Filtration Rate 82.7 mL/min (90-130); Glucose 143 mg/dL (65-115); Osmolality Calculated 289 mOsm/kg (285-295); Potassium 4.2 mmol/L (3.5-5.1); Sodium 138 mmol/L (136-145); Total Bilirubin 0.5 mg/dL (0.15-1.2); Total Protein 6.4 g/dL (6.6-8.7)
[2022-07-27] MEDS: dextrose 5% 250 ML 75 ML IV (10:30)
[2022-07-27] MEDS: famotidine 20 mg/2 mL INJ IVP (10:34)
[2022-07-27] MEDS: palonosetron 0.25 mg/5 mL SDV IVP (10:48)
[2022-07-27] MEDS: dexamethasone 20 MG in sodium chloride 0.9% 50 ML 188 MG IV (10:49)
[2022-07-27] MEDS: atropine 1 mg/mL SDV 1 mL 0.4 MG IV (14:54)
[2022-07-27] MEDS: irinotecan 300 MG, irinotecan 40 MG in dextrose 5% 250 ML 178 MG IV (15:08)
[2022-07-27] MEDS: prochlorperazine 10 mg/2 mL Inj 5 MG IVP (17:00)
[2022-07-27] MEDS: fluorouraciL 50 mg/ml MDV 100 mL 772 MG IVP (17:57)
[2022-07-27 18:01] VITALS: BP 119/74; PULSE 85; RESP 18; TEMP 36.2; O2SAT 97
[2022-07-27] MEDS: fluorouraciL 4,650 MG, elastomeric pump 1 PUMP in sodium chloride 0.9% (100 ml) 0 ML IV (18:05)
[2022-07-29 11:35] VITALS: BP 108/76; PULSE 94; RESP 16; TEMP 36.9; O2SAT 100
[2022-08-10 09:37] VITALS: BP 138/82; PULSE 72; RESP 18; TEMP 36.8; O2SAT 98
[2022-08-10 09:58] LABS: Basophils % 0.2 %; Eosinophils # 0.1 10^3/uL (0.0-0.8); Eosinophils % 1.6 %; Hematocrit 32.7 % (37.0-47.0); Hemoglobin 10.5 g/dL (11.5-15.3); Lymphocytes # 1.4 10^3/uL (0.8-4.8); Lymphocytes % 29.5 %; Mean Corpuscular HGB Conc 32.1 g/dL (30.0-36.0); Mean Corpuscular Hemoglobin 29.1 pg (28.0-34.0); Mean Corpuscular Volume 90.6 fl (81-99); Mean Platelet Volume 9.2 fL (7.4-10.4); Monocytes # 0.5 10^3/uL (0.2-0.9); Monocytes % 9.6 %; Neutrophils # 2.86 10^3/uL (1.8-7.7); Neutrophils % 58.7 %; Nucleated Red Blood Cells % 0 %; Platelet Count 128 10^3/cmm (130-400); Red Blood Count 3.61 10^6/uL (4.1-5.3); Red Cell Distribution Width 15.5 % (12.1-15.1); White Blood Count 4.9 10^3/uL (4.0-10.0)
[2022-08-10 10:15] LABS: Alanine Aminotransferase 54 U/L (0-33); Albumin Level 3.7 g/dL (3.5-5.2); Alkaline Phosphatase 205 U/L (35-105); Aspartate Amino Transferase 71 U/L (0-32); Blood Urea Nitrogen 14 mg/dL (8-23); Calcium 8.1 mg/dL (8.5-10.5); Cancer Antigen 19 9 316.5 U/mL (0-35); Carbon Dioxide 23 mmol/L (22-29); Chloride 105 mmol/L (98-107); Creatinine Clr Calc Pharmacy 70.1885; Globulin 2.1 g/dL (1.3-4.6); Glomerular Filtration Rate 98.8 mL/min (90-130); Glucose 227 mg/dL (65-115); Osmolality Calculated 290 mOsm/kg (285-295); Sodium 136 mmol/L (136-145); Total Bilirubin 0.3 mg/dL (0.15-1.2); Total Protein 5.8 g/dL (6.6-8.7)
[2022-08-10] MEDS: dextrose 5% 250 ML 100 ML IV (11:53)
[2022-08-10] MEDS: famotidine 20 mg/2 mL INJ IVP (11:55)
[2022-08-10] MEDS: palonosetron 0.25 mg/5 mL SDV IVP (11:57)
[2022-08-10] MEDS: atropine 1 mg/mL SDV 1 mL 0.4 MG IV (15:27)
[2022-08-10] MEDS: diphenhydrAMINE 50 mg/mL SDV 1mL 25 MG IVP (16:38)
[2022-08-10] MEDS: fluorouraciL 50 mg/ml MDV 100 mL 772 MG IVP (17:08)
[2022-08-10] MEDS: fluorouraciL 4,650 MG, elastomeric pump 1 PUMP in sodium chloride 0.9% (100 ml) 0 ML IV (17:08)
[2022-08-10 17:26] VITALS: BP 149/84; PULSE 72; TEMP 36.7; O2SAT 97
[2022-08-12 11:15] VITALS: BP 128/77; PULSE 91; RESP 16; TEMP 36.9; O2SAT 96
== END 2022-08-12 23:59 | disposition home or self-care (01) ==
PROVIDERS: Nurse Practitioner; PCP Nurse Practitioner Family; Visit Provider Internal Medicine Hematology & Oncology
DX: C25.9 Malignant neoplasm of pancreas, unspecified
CPT/HCPCS: 96374 ×2; 96367 ×3; 96375 ×2; 96411 ×2; 96413 ×2; 96415 ×2; 96366; 96417 ×2; 80053; 85025; 86301; 96523; 99214; J0461; J0640; J0780; J1100; J1200; J1642; J2469; J2997; J3490; J7060; J9190; J9206; J9263

== ENCOUNTER 2022-09-03 06:44 | Outpatient (CLI) | payer MEDICARE, SELFPAY ==
--- NOTE | 2022-09-03 12:00 | PETR_ITS ---
PROCEDURE INFORMATION: Exam: PET/CT Skull Base to Mid-thigh Exam date and time: 09/03/2022 12:49 PM Age: 72 years old Clinical indication: Condition or disease; Primary cancer: Pancreatic cancer; Follow-up oncological assessment; Additional info: Restaging, patient needs a copy of the disc to take to [place]. LABS AND CLINICAL REPORTS: Glucose: 107 mg/dl Treatment strategy for malignancy (PET staging): Restaging (PS) TECHNIQUE: Imaging protocol: Following at least four-hour fasting and following the injection of radiopharmaceutical, low dose CT images were obtained. Then, PET images were obtained. Attenuation corrected images were constructed using the CT scan. Fused images of PET and CT were reviewed. The standardized uptake values (SUV) reported below are maximum values within a region of interest, expressed in gm/ml. Exam includes orbital meatal line to mid-thigh. Radiopharmaceutical: 13.39 mCi F-18 FDG (Fluorodeoxyglucose), IV. Time of imaging post radiopharmaceutical administration: 1 hour Injection site: Not specified COMPARISON: [facility] INIT[facility] [id number] 06/11/2022 9:05 AM FINDINGS: Tubes, catheters and devices: There is a right internal jugular central venous port catheter terminating in the distal SVC. Brain: Visualized brain has normal physiologic uptake. Pharynx: There is physiologic uptake in the region of the cricoid cartilage. Larynx: No abnormal uptake. Lungs, pleura and trachea: No abnormal uptake. There is a left upper lobe calcified granuloma. Heart: Normal physiologic uptake. Mediastinal space: No abnormal uptake. Liver: No abnormal uptake. Diffuse hypodensity of the liver is increased, consistent with fatty infiltration. Mild intrahepatic biliary ductal dilatation is increased. Gallbladder and bile ducts: No abnormal uptake. A stent in the common bile duct is noted. A stone in the gallbladder is present. Pancreas: Uptake in the region of the pancreatic head currently demonstrates an SUV max 5.9 (previously 7.9). No well-defined mass in this region is noted although assessment is limited without intravenous contrast. Spleen: No abnormal uptake. Adrenal glands: No abnormal uptake. Kidneys and ureters: Normal physiologic uptake. Stomach and bowel: Uptake in an anterior distal small bowel loop in the right pelvis on PET series 4, image 123 through 127 is noted, SUV max 13.2, without a definite lesion on the CT images. This uptake is greater than physiologic appearing uptake within more proximal small bowel loops and within the colon. A previously noted focus of uptake within small bowel in the lower abdomen is no longer appreciated. Uptake in the distal stomach is new, SUV max 5.0. This portion of the stomach is decompressed and not well assessed however there is no definite corresponding wall thickening. Vasculature: No abnormal uptake. Diffuse atherosclerotic changes are noted. Lymph nodes: No abnormal uptake. No lymphadenopathy in the head, neck, chest, abdomen, pelvis, and extremities. Non radiotracer avid inferior left hilar/periesophageal calcified lymph nodes are noted. Bones/joints: No abnormal uptake in the visualized axial and appendicular skeleton. There is mild diffuse vertebral body spondylosis. Similar T11 vertebral body compression fracture. Soft tissues: No abnormal uptake in the visualized head, neck, chest, abdomen, pelvis, and extremities. METRICS: Mediastinal blood pool: SUV max 2.6 PET/PET [facility] SUBSEQ [id number] IMPRESSION: 1. Decreased uptake in the region of known malignancy in the pancreatic head (SUV max 5.9, previously 7.9) suggestive of partial response to therapy. 2. Mild uptake within the distal stomach is noted which is new since the prior PET-CT. There is no definite associated wall thickening in this uptake may be physiologic in nature. Gastritis or neoplastic involvement are less likely etiologies. 3. A previously noted focus of uptake within small bowel in the lower abdomen is not identified. There is a new indeterminate focus of relatively elevated uptake (SUV max 13.2) in the region of a small bowel loop in the right pelvis without a definite correlating lesion. 4. Significant interval increase in a hepatic steatosis since the prior PET-CT with interval increase in mild intrahepatic biliary ductal gas. 5. Additional nonurgent findings as detailed above.
== END 2022-09-03 06:45 | disposition home or self-care (01) ==
LOC: RAD 09-05 06:44
PROVIDERS: PCP Nurse Practitioner Family; Visit Provider Nurse Practitioner Family
DX: C25.9 Malignant neoplasm of pancreas, unspecified (principal)
CPT/HCPCS: 78815; A9552

== ENCOUNTER 2022-09-09 11:00 | Oncology outpatient (recurring) (ONCR) | payer MEDICARE, SELFPAY ==
[2022-08-24 09:02] VITALS: BP 167/97; PULSE 86; RESP 18; TEMP 36.3; O2SAT 97
[2022-08-24 09:19] LABS: Basophils % 0.3 %; Eosinophils # 0.1 10^3/uL (0.0-0.8); Eosinophils % 1.5 %; Hematocrit 32.6 % (37.0-47.0); Hemoglobin 10.6 g/dL (11.5-15.3); Lymphocytes # 0.9 10^3/uL (0.8-4.8); Mean Corpuscular HGB Conc 32.5 g/dL (30.0-36.0); Mean Corpuscular Hemoglobin 29.4 pg (28.0-34.0); Mean Corpuscular Volume 90.6 fl (81-99); Mean Platelet Volume 9.2 fL (7.4-10.4); Monocytes # 0.5 10^3/uL (0.2-0.9); Monocytes % 13.4 %; Neutrophils # 1.96 10^3/uL (1.8-7.7); Neutrophils % 58.5 %; Nucleated Red Blood Cells % 0 %; Platelet Count 130 10^3/cmm (130-400); Red Cell Distribution Width 16.1 % (12.1-15.1); White Blood Count 3.4 10^3/uL (4.0-10.0)
[2022-08-24 09:48] LABS: Alanine Aminotransferase 82 U/L (0-33); Albumin Level 3.5 g/dL (3.5-5.2); Alkaline Phosphatase 272 U/L (35-105); Anion Gap 12.9 (5-19); Aspartate Amino Transferase 104 U/L (0-32); Blood Urea Nitrogen 10 mg/dL (8-23); Calcium 8.1 mg/dL (8.5-10.5); Cancer Antigen 19 9 257.2 U/mL (0-35); Carbon Dioxide 27 mmol/L (22-29); Chloride 103 mmol/L (98-107); Creatinine Clr Calc Pharmacy 70.1885; Globulin 2.3 g/dL (1.3-4.6); Glomerular Filtration Rate 98.8 mL/min (90-130); Glucose 289 mg/dL (65-115); Osmolality Calculated 298 mOsm/kg (285-295); Potassium 3.9 mmol/L (3.5-5.1); Sodium 139 mmol/L (136-145); Total Bilirubin 0.3 mg/dL (0.15-1.2); Total Protein 5.8 g/dL (6.6-8.7)
[2022-08-24 11:26] VITALS: BP 140/88; PULSE 74; RESP 18; TEMP 36.4; O2SAT 97
[2022-08-31 08:26] VITALS: BP 153/93; PULSE 88; RESP 18; TEMP 36.7; O2SAT 96
[2022-08-31 08:36] LABS: Basophils % 0.5 %; Eosinophils # 0.1 10^3/uL (0.0-0.8); Hematocrit 36.5 % (37.0-47.0); Hemoglobin 11.6 g/dL (11.5-15.3); Lymphocytes # 1.8 10^3/uL (0.8-4.8); Lymphocytes % 28.5 %; Mean Corpuscular HGB Conc 31.8 g/dL (30.0-36.0); Mean Corpuscular Hemoglobin 28.8 pg (28.0-34.0); Mean Corpuscular Volume 90.6 fl (81-99); Mean Platelet Volume 9.2 fL (7.4-10.4); Monocytes # 0.9 10^3/uL (0.2-0.9); Monocytes % 14.4 %; Neutrophils # 3.22 10^3/uL (1.8-7.7); Neutrophils % 51.4 %; Nucleated Red Blood Cells % 0 %; Platelet Count 155 10^3/cmm (130-400); Red Blood Count 4.03 10^6/uL (4.1-5.3); Red Cell Distribution Width 16.3 % (12.1-15.1); White Blood Count 6.3 10^3/uL (4.0-10.0)
[2022-08-31 09:10] LABS: Alanine Aminotransferase 68 U/L (0-33); Albumin Level 3.7 g/dL (3.5-5.2); Alkaline Phosphatase 299 U/L (35-105); Anion Gap 12.2 (5-19); Aspartate Amino Transferase 84 U/L (0-32); Blood Urea Nitrogen 9 mg/dL (8-23); Calcium 8.6 mg/dL (8.5-10.5); Carbon Dioxide 28 mmol/L (22-29); Chloride 100 mmol/L (98-107); Globulin 2.8 g/dL (1.3-4.6); Glucose 162 mg/dL (65-115); Osmolality Calculated 284 mOsm/kg (285-295); Potassium 4.2 mmol/L (3.5-5.1); Sodium 136 mmol/L (136-145); Total Bilirubin 0.4 mg/dL (0.15-1.2); Total Protein 6.5 g/dL (6.6-8.7)
[2022-09-07 08:26] VITALS: BMI 29.9
[2022-09-07 08:27] VITALS: BP 141/90; PULSE 77; RESP 18; TEMP 36.4; O2SAT 98
[2022-09-07 08:37] LABS: Basophils % 0.6 %; Eosinophils # 0.1 10^3/uL (0.0-0.8); Eosinophils % 0.8 %; Hematocrit 35.5 % (37.0-47.0); Hemoglobin 11.3 g/dL (11.5-15.3); Lymphocytes # 1.6 10^3/uL (0.8-4.8); Lymphocytes % 22.6 %; Mean Corpuscular HGB Conc 31.8 g/dL (30.0-36.0); Mean Corpuscular Hemoglobin 29.4 pg (28.0-34.0); Mean Corpuscular Volume 92.2 fl (81-99); Mean Platelet Volume 9.3 fL (7.4-10.4); Monocytes # 0.5 10^3/uL (0.2-0.9); Monocytes % 6.7 %; Neutrophils # 4.92 10^3/uL (1.8-7.7); Neutrophils % 67.8 %; Nucleated Red Blood Cells % 0 %; Platelet Count 207 10^3/cmm (130-400); Red Blood Count 3.85 10^6/uL (4.1-5.3); Red Cell Distribution Width 15.9 % (12.1-15.1); White Blood Count 7.3 10^3/uL (4.0-10.0)
[2022-09-07 09:01] LABS: Alanine Aminotransferase 66 U/L (0-33); Albumin Level 3.7 g/dL (3.5-5.2); Alkaline Phosphatase 267 U/L (35-105); Anion Gap 13.4 (5-19); Aspartate Amino Transferase 91 U/L (0-32); Blood Urea Nitrogen 9 mg/dL (8-23); Calcium 8.5 mg/dL (8.5-10.5); Carbon Dioxide 25 mmol/L (22-29); Chloride 103 mmol/L (98-107); Globulin 2.6 g/dL (1.3-4.6); Glucose 141 mg/dL (65-115); Osmolality Calculated 285 mOsm/kg (285-295); Potassium 4.4 mmol/L (3.5-5.1); Sodium 137 mmol/L (136-145); Total Bilirubin 0.4 mg/dL (0.15-1.2); Total Protein 6.3 g/dL (6.6-8.7)
[2022-09-07] MEDS: dextrose 5% 250 ML 75 ML IV (11:29)
[2022-09-07] MEDS: famotidine 20 mg/2 mL INJ IVP (11:32)
[2022-09-07 11:33] LABS: Cancer Antigen 19 9 217.9 U/mL (0-35)
[2022-09-07] MEDS: palonosetron 0.25 mg/5 mL SDV IVP (11:35)
[2022-09-07] MEDS: atropine 1 mg/mL SDV 1 mL 0.4 MG IV (12:33)
[2022-09-07] MEDS: irinotecan 300 MG, irinotecan 40 MG in dextrose 5% 250 ML 178 MG IV (12:43)
[2022-09-07] MEDS: fluorouraciL 4,650 MG, elastomeric pump 1 PUMP in sodium chloride 0.9% (100 ml) 0 ML IV (16:52)
[2022-09-07] MEDS: fluorouraciL 50 mg/ml MDV 100 mL 772 MG IVP (16:52)
[2022-09-07 17:16] VITALS: BP 156/97; PULSE 73; TEMP 36.6
[2022-09-09 11:10] VITALS: BP 118/78; PULSE 89; RESP 17; TEMP 36.2; O2SAT 97
== END 2022-09-12 23:59 | disposition home or self-care (01) ==
PROVIDERS: Nurse Practitioner Family; PCP Nurse Practitioner Family; Visit Provider Internal Medicine Hematology & Oncology
DX: Z45.2 Encounter for adjustment and management of vascular access device (principal)
CPT/HCPCS: 36415; 80053; 85025; 86301; 96367; 96368; 96375; 96411; 96413; 96415; 96416; 96417; 99214; J0461; J0640; J1100; J1642; J2469; J3490; J7060; J9190; J9206; J9263

== ENCOUNTER 2022-12-13 08:57 | Oncology outpatient (recurring) (ONCR) | payer MEDICARE, SELFPAY ==
[2022-11-21 15:41] LABS: Basophils % 0.6 %; Eosinophils % 0.6 %; Hematocrit 36.6 % (36-47); Lymphocytes # 1.4 10^3/uL (0.8-4.8); Lymphocytes % 26.2 %; Mean Corpuscular HGB Conc 31.7 g/dL (30-55); Mean Corpuscular Hemoglobin 30.4 pg (27-33); Mean Corpuscular Volume 96.1 fl (85-98); Mean Platelet Volume 9.5 fL (7.4-10.4); Monocytes # 0.4 10^3/uL (0.2-0.9); Monocytes % 6.9 %; Neutrophils # 3.53 10^3/uL (1.8-7.7); Neutrophils % 65.3 %; Nucleated Red Blood Cells % 0 %; Platelet Count 177 10^3/cmm (157-399); Red Blood Count 3.81 10^6/uL (3.85-5.65); Red Cell Distribution Width 15.9 % (12.1-15.1); White Blood Count 5.39 10^3/uL (3.29-11.43)
[2022-11-21 16:06] LABS: Alanine Aminotransferase 14 U/L (0-33); Albumin Level 3.4 g/dL (3.5-5.2); Alkaline Phosphatase 210 U/L (35-105); Anion Gap 11.6 (5-19); Aspartate Amino Transferase 46 U/L (0-32); Blood Urea Nitrogen 6 mg/dL (8-23); Calcium 8.2 mg/dL (8.5-10.5); Carbon Dioxide 28 mmol/L (22-29); Chloride 100 mmol/L (98-107); Globulin 2.5 g/dL (1.3-4.6); Glomerular Filtration Rate 70.9 mL/min (90-130); Glucose 160 mg/dL (65-115); Osmolality Calculated 283 mOsm/kg (285-295); Potassium 3.6 mmol/L (3.5-5.1); Sodium 136 mmol/L (136-145); Total Bilirubin 1.4 mg/dL (0.15-1.2); Total Protein 5.9 g/dL (6.6-8.7)
== END 2022-12-13 23:59 | disposition home or self-care (01) ==
PROVIDERS: PCP Nurse Practitioner Family; Visit Provider Internal Medicine Medical Oncology
DX: C25.0 Malignant neoplasm of head of pancreas (principal); Z79.899 Other long term (current) drug therapy; Z45.1 Encounter for adjustment and management of infusion pump; D50.0 Iron deficiency anemia secondary to blood loss (chronic); D50.9 Iron deficiency anemia, unspecified; D64.9 Anemia, unspecified
CPT/HCPCS: 36591; 80053; 85025; 99214; 99215; J1642

== ENCOUNTER 2022-12-26 06:46 | Outpatient (CLI) | payer MEDICARE, SELFPAY ==
--- NOTE | 2022-12-26 08:00 | CT_ITS ---
WS: [id number] CT CHEST, ABDOMEN AND PELVIS WITH CONTRAST HISTORY: pancreatic cancer restaging TECHNIQUE: Contiguous 5 mm axial imaging performed through the chest, abdomen and pelvis with IV cont rast, oral contrast has been provided. Coronal and sagittal reformats chest. Coronal and sagittal ref ormats through the abdomen and pelvis. All CT scans at [facility] use at least one of these d ose optimization techniques: automated exposure control; mA and/or kV adjustment per patient size (in cludes targeted exams where dose is matched to clinical indication); or iterative reconstruction. CONTRAST: Omnipaque 350; 100 mL IV. DLP: 689.63 mGy.cm COMPARISON: 05/26/2022, 04/15/2022, PET/CT 09/03/[address]: No pulmonary mass or nodules. No pericardial or pleural effusions. RIGHT subclavian Port-A- Cath. No mediastinal or hilar adenopathy. Heart is normal size. Small amount of oral contrast in the distal esophagus from reflux disease. Abdomen CT: Severe low attenuation throughout the entire liver consistent with hepatic steatosis. Thi s is markedly progressed since the prior study may be related to chemotherapy. No enhancing mass. No bile duct dilatation. Prior cholecystectomy. Normal spleen. Patient is status post Whipple procedure. Marked atrophy of the remaining pancreas. Atrophy has progressed since the prior study. Mass previou sly described at the pancreatic head continues to decrease in size. Residual mass near the neck of th e pancreas is 1.9 x 1.5 cm. Common bile duct stent is no longer noted. There are postsurgical sutures in the stomach and antrum of the stomach. Stomach is nondistended with oral contrast. There is new m oderate asymmetric wall thickening. Please note PET CT was positive in this area of the stomach. No a drenal mass. No renal obstruction. Mild atherosclerosis aorta. Postsurgical changes along the ventral anterior abdominal wall. No focal collection. No central mesen teric lymph nodes or ascites. No retroperitoneal adenopathy. No GI tract obstruction. Distal colon constipation. Normal appendix. Pelvic CT: Well-distended urinary bladder. No free fluid. No adenopathy. T11 biconcave fracture. No destructive bone lesions. IMPRESSION: 1. Postsurgical changes of Whipple procedure. The there are additional surgical changes within the [facility] and prior cholecystectomy. 2. Continued atrophy of the remaining pancreas with mild duct dilatation. Pancreatic head/neck mass c ontinues to decrease in size now measuring 1.9 x 1.5 cm. 3. New diffuse severe hepatic steatosis may be related to patient's treatment. 4. No metastatic disease is identified within the lungs, liver or adrenal glands. No adenopathy. No a scites. 5. Mild soft tissue thickening of the stomach. Similar location to the PET/CT where that was mildly p ositive on 09/03/2022. The mild soft tissue thickening may be related to underdistention. Cannot exclu de neoplasm. Suspicious but indeterminate for neoplastic site. The soft tissue thickening is new as c ompared to the CT of 05/26/2022 6. CBD stent has been removed.
[2022-12-26] MEDS: iohexol 350 mg/mL 500 mL Btl (per mL) IV (08:29)
[2022-12-26] MEDS: iohexol 350 mg/mL 500 mL Btl (per mL) PO (08:30)
== END 2022-12-26 06:47 | disposition home or self-care (01) ==
LOC: RAD 06:46
PROVIDERS: PCP Nurse Practitioner Family; Visit Provider Internal Medicine Medical Oncology
DX: C25.0 Malignant neoplasm of head of pancreas (principal); K76.0 Fatty (change of) liver, not elsewhere classified
CPT/HCPCS: 71260; 74177; Q9967

== ENCOUNTER 2023-01-13 06:00 | Oncology outpatient (recurring) (ONCR) | payer MEDICARE, SELFPAY | END 2023-02-12 23:59 | disposition home or self-care (01) | LOC: ONCMED 04-28 09:27 | PROVIDERS: PCP Family Medicine; Visit Provider Internal Medicine Medical Oncology | DX: C25.0 Malignant neoplasm of head of pancreas (principal); Z79.899 Other long term (current) drug therapy; Z45.1 Encounter for adjustment and management of infusion pump; D50.0 Iron deficiency anemia secondary to blood loss (chronic); D50.9 Iron deficiency anemia, unspecified; D64.9 Anemia, unspecified | CPT/HCPCS: 36591; 80053; 85025; 86301; 99213; J1642 ==

== ENCOUNTER 2023-03-21 13:52 | Oncology outpatient (recurring) (ONCR) | payer MEDICARE, SELFPAY ==
[2023-01-18 13:05] VITALS: BP 129/85; PULSE 62; RESP 16; TEMP 35.6; O2SAT 96
[2023-01-18 13:28] LABS: Basophils % 0.4 %; Eosinophils # 0.1 10^3/uL (0.0-0.8); Eosinophils % 1.4 %; Hematocrit 35.9 % (36-47); Lymphocytes # 1.3 10^3/uL (0.8-4.8); Lymphocytes % 25.3 %; Mean Corpuscular HGB Conc 32.9 g/dL (30-55); Mean Corpuscular Hemoglobin 29.6 pg (27-33); Mean Platelet Volume 9.2 fL (7.4-10.4); Monocytes # 0.3 10^3/uL (0.2-0.9); Monocytes % 5.7 %; Neutrophils # 3.42 10^3/uL (1.8-7.7); Nucleated Red Blood Cells % 0 %; Platelet Count 165 10^3/cmm (157-399); Red Blood Count 3.99 10^6/uL (3.85-5.65); Red Cell Distribution Width 15.5 % (12.1-15.1)
[2023-01-18 13:58] LABS: Alanine Aminotransferase 16 U/L (0-33); Albumin Level 3.3 g/dL (3.5-5.2); Alkaline Phosphatase 162 U/L (35-105); Aspartate Amino Transferase 49 U/L (0-32); Blood Urea Nitrogen 7 mg/dL (8-23); Calcium 8.4 mg/dL (8.5-10.5); Cancer Antigen 19 9 48.58 U/mL (0-35); Carbon Dioxide 25 mmol/L (22-29); Chloride 104 mmol/L (98-107); Creatinine Clr Calc Pharmacy 62.6167; Globulin 2.4 g/dL (1.3-4.6); Glomerular Filtration Rate 70.9 mL/min (90-130); Glucose 163 mg/dL (65-115); Osmolality Calculated 290 mOsm/kg (285-295); Sodium 139 mmol/L (136-145); Total Bilirubin 0.7 mg/dL (0.15-1.2); Total Protein 5.7 g/dL (6.6-8.7)
== END 2023-04-13 23:59 | disposition home or self-care (01) ==
LOC: ONCMED 13:55
PROVIDERS: Internal Medicine Medical Oncology; PCP Family Medicine; Visit Provider Internal Medicine Medical Oncology
DX: Z45.2 Encounter for adjustment and management of vascular access device (principal)
CPT/HCPCS: 36591; 80053; 85025; 86301; 96523; 99213; J1642

== ENCOUNTER 2023-04-03 09:03 | Outpatient (CLI) | payer MEDICARE, SELFPAY ==
[2023-04-03] MEDS: iohexol 350 mg/mL 500 mL Btl (per mL) PO (10:29)
--- NOTE | 2023-04-03 10:30 | CT_ITS ---
WS: [id number] CT CHEST, ABDOMEN, AND PELVIS TECHNIQUE: Contrast-enhanced CT of the chest, abdomen, and pelvis with coronal and sagittal reformatt ed images. CLINICAL INFORMATION: compare to previous COMPARISON: None. DLP: 552.[address] scans at [facility] use at least one of these dose optimization techniques: automated e xposure control; mA and/or kV adjustment per patient size (includes targeted exams where dose is matc hed to clinical indication); or iterative reconstruction. CT CHEST: Lungs are well aerated. No acute pulmonary infiltrates. No suspicious pulmonary parenchymal opacities . Normal caliber thoracic aorta. Few small thyroid nodules. No mediastinal or hilar lymphadenopathy. No axillary lymphadenopathy. Mild thoracic curve. Mild thoracic kyphosis. Schmorl's nodes in the mid and lower thoracic spine with mild chronic anterior wedging. CT ABDOMEN AND PELVIS: Hepatomegaly diffuse fatty infiltration of the liver. Normal portal vein and splenic vein. Normal spl een. Normal GE junction. Prior postoperative changes of Whipple procedure. Atrophic residual pancreas with mild ductal dilatation is unchanged. Soft tissue thickening in the area of the previously descr ibed and resected head and neck mass is stable. No evidence of new or progressed disease. Adrenal glands are normal. Normal renal parenchymal enhance ment. No hydronephrosis. Normal GE junction. Normal caliber abdominal aorta. Mild aortic calcificatio n. Urinary distention of the bladder. Sigmoid constipation. No adenopathy in the abdomen or pelvis. C hronic anterior wedging at T11 is unchanged. Previously described soft tissue thickening involving th e stomach at the area of anastomosis appears improved. IMPRESSION: 1. No acute chest findings. 2. No evidence of new or progressed disease in the abdomen or pelvis. 3. Postoperative changes Whipple procedure. 4. Atrophic residual pancreatic tail with ductal dilatation. 5. Diffuse fatty filtration of the liver.
[2023-04-03 10:33] LABS: Blood Urea Nitrogen 5 mg/dL (8-23); Glomerular Filtration Rate 61.9 mL/min (90-130)
[2023-04-03] MEDS: iohexol 350 mg/mL 500 mL Btl (per mL) IV (10:40)
== END 2023-04-03 09:04 | disposition home or self-care (01) ==
LOC: RAD 09:04
PROVIDERS: PCP Family Medicine; Visit Provider Internal Medicine Medical Oncology
DX: C25.0 Malignant neoplasm of head of pancreas (principal); K76.0 Fatty (change of) liver, not elsewhere classified; R16.0 Hepatomegaly, not elsewhere classified
CPT/HCPCS: 71260; 74177; 82565; 84520; Q9967

== ENCOUNTER 2023-04-20 08:01 | Oncology outpatient (recurring) (ONCR) | payer MEDICARE, SELFPAY ==
[2023-04-20 08:29] LABS: Basophils % 0.5 %; Eosinophils % 0.9 %; Lymphocytes # 1.2 10^3/uL (0.8-4.8); Lymphocytes % 28.4 %; Mean Corpuscular HGB Conc 33.1 g/dL (30-55); Mean Corpuscular Hemoglobin 31.8 pg (27-33); Mean Corpuscular Volume 96.1 fl (85-98); Mean Platelet Volume 9.1 fL (7.4-10.4); Monocytes # 0.4 10^3/uL (0.2-0.9); Neutrophils # 2.64 10^3/uL (1.8-7.7); Nucleated Red Blood Cells % 0 %; Platelet Count 137 10^3/cmm (157-399); Red Blood Count 3.33 10^6/uL (3.85-5.65); Red Cell Distribution Width 14.7 % (12.1-15.1); White Blood Count 4.33 10^3/uL (3.29-11.43)
[2023-04-20 09:04] LABS: Alanine Aminotransferase 21 U/L (0-33); Albumin Level 3.3 g/dL (3.5-5.2); Alkaline Phosphatase 149 U/L (35-105); Anion Gap 10.4 (5-19); Aspartate Amino Transferase 60 U/L (0-32); Blood Urea Nitrogen 9 mg/dL (8-23); Calcium 8.3 mg/dL (8.5-10.5); Cancer Antigen 19 9 91.01 U/mL (0-35); Carbon Dioxide 27 mmol/L (22-29); Chloride 105 mmol/L (98-107); Glomerular Filtration Rate 61.9 mL/min (90-130); Glucose 155 mg/dL (65-115); Osmolality Calculated 288 mOsm/kg (285-295); Potassium 4.4 mmol/L (3.5-5.1); Sodium 138 mmol/L (136-145); Total Bilirubin 0.4 mg/dL (0.15-1.2); Total Protein 5.3 g/dL (6.6-8.7)
== END 2023-05-14 23:59 | disposition home or self-care (01) ==
PROVIDERS: Internal Medicine Hematology & Oncology; PCP Family Medicine; Visit Provider Internal Medicine Medical Oncology
DX: C25.0 Malignant neoplasm of head of pancreas (principal); Z79.899 Other long term (current) drug therapy; Z45.1 Encounter for adjustment and management of infusion pump; C25.9 Malignant neoplasm of pancreas, unspecified; Z95.828 Presence of other vascular implants and grafts
CPT/HCPCS: 36591; 80053; 85025; 86301; 99214

== ENCOUNTER 2023-04-25 10:00 | Outpatient (CLI) | payer MEDICARE, SELFPAY ==
--- NOTE | 2023-04-25 10:30 | MM_ITS ---
WS: [facility] BILATERAL 3D TOMOSYNTHESIS DIGITAL SCREENING MAMMOGRAPHY WITH CAD CLINICAL INFORMATION: breast cancer screening HISTORY: Screening mammogram. No current complaints. COMPARISON: None. TECHNIQUE: Bilateral CC and MLO views. FINDINGS: Scattered fibroglandular densities bilaterally. No suspicious focal mass, asymmetry, calcifications, or architectural distortion. No evidence of malignancy. IMPRESSION: MM/[place] [id number] BI-RADS: 1-Negative FOLLOW UP: 1 Year Follow-up Recommend return to annual screening mammography.
== END 2023-04-25 10:01 | disposition home or self-care (01) ==
LOC: RAD 10:00
PROVIDERS: PCP Family Medicine; Visit Provider Family Medicine
DX: Z12.31 Encounter for screening mammogram for malignant neoplasm of breast (principal); R92.323 Mammographic fibroglandular density, bilateral breasts; Z85.07 Personal history of malignant neoplasm of pancreas; Z87.891 Personal history of nicotine dependence; Z90.49 Acquired absence of other specified parts of digestive tract
CPT/HCPCS: 77063; 77067; 99204

== ENCOUNTER → 2023-05-02 08:33 | Outpatient (BNVA) | payer MEDICARE, SELFPAY | PROVIDERS: PCP Family Medicine; Referring Provider Nurse Practitioner Family; Visit Provider Internal Medicine | DX: E11.9 Type 2 diabetes mellitus without complications (principal); C25.0 Malignant neoplasm of head of pancreas; K90.0 Celiac disease | CPT/HCPCS: 80053; 80061; 82044; 82784; 83036; 83516; 84681; 99204 ==

== ENCOUNTER 2023-05-25 12:09 | Oncology outpatient (recurring) (ONCR) | payer MEDICARE, SELFPAY ==
[2023-05-25 12:37] LABS: Basophils % 0.2 %; Eosinophils % 0.9 %; Hematocrit 33.9 % (36-47); Lymphocytes # 1.3 10^3/uL (0.8-4.8); Lymphocytes % 29.1 %; Mean Corpuscular Hemoglobin 31.5 pg (27-33); Mean Corpuscular Volume 95.2 fl (85-98); Mean Platelet Volume 9.8 fL (7.4-10.4); Monocytes # 0.3 10^3/uL (0.2-0.9); Monocytes % 7.7 %; Neutrophils # 2.75 10^3/uL (1.8-7.7); Neutrophils % 61.9 %; Nucleated Red Blood Cells % 0 %; Platelet Count 138 10^3/cmm (157-399); Red Blood Count 3.56 10^6/uL (3.85-5.65); White Blood Count 4.44 10^3/uL (3.29-11.43)
[2023-05-25 13:09] LABS: Alanine Aminotransferase 26 U/L (0-33); Albumin Level 3.5 g/dL (3.5-5.2); Alkaline Phosphatase 170 U/L (35-105); Anion Gap 13.7 (5-19); Aspartate Amino Transferase 71 U/L (0-32); Blood Urea Nitrogen 8 mg/dL (8-23); Calcium 8.5 mg/dL (8.5-10.5); Cancer Antigen 19 9 179.9 U/mL (0-35); Carbon Dioxide 25 mmol/L (22-29); Chloride 107 mmol/L (98-107); Globulin 1.9 g/dL (1.3-4.6); Glomerular Filtration Rate 61.9 mL/min (90-130); Glucose 167 mg/dL (65-115); Osmolality Calculated 294 mOsm/kg (285-295); Potassium 4.7 mmol/L (3.5-5.1); Sodium 141 mmol/L (136-145); Total Bilirubin 0.4 mg/dL (0.15-1.2); Total Protein 5.4 g/dL (6.6-8.7)
[2023-05-25 13:40] LABS: Carcinoembryonic Antigen 6.6 ng/mL (0.0-4.7)
[2023-05-25 14:51] LABS: Iron 98 ug/dL (37-145); Total Iron Binding Capacity 158 mcg/dl; Unsaturated Iron Binding 60 ug/dL (112-347)
[2023-05-25 15:07] LABS: Vitamin B12 821 pg/mL (232-1245)
[2023-05-26 09:17] LABS: Ferritin 355 ng/mL (15-150); Thyroid Stimulating Hormone 4.13 uIU/mL (0.27-4.20)
== END 2023-06-13 23:59 | disposition home or self-care (01) ==
PROVIDERS: PCP Family Medicine; Visit Provider Internal Medicine Medical Oncology
DX: E11.9 Type 2 diabetes mellitus without complications (principal); E77.8 Other disorders of glycoprotein metabolism; Z79.84 Long term (current) use of oral hypoglycemic drugs; C25.0 Malignant neoplasm of head of pancreas; Z95.828 Presence of other vascular implants and grafts; R79.89 Other specified abnormal findings of blood chemistry
CPT/HCPCS: 36591; 80053; 82378; 82607; 82728; 83540; 83550; 84443; 85025; 86301; 99214

== ENCOUNTER 2023-06-27 08:01 | Outpatient (CLI) | payer MEDICARE, SELFPAY ==
--- NOTE | 2023-06-27 08:00 | PETR_ITS ---
PROCEDURE INFORMATION: Exam: PET/CT Skull Base to Mid-thigh Exam date and time: 06/27/2023 8:49 AM Age: 72 years old Clinical indication: Condition or disease; Primary cancer: Pancreatic cancer; Follow-up oncological assessment; Prior surgery; Surgery date: 6+ months; Surgery type: Whipple, gb, tubal, port LABS AND CLINICAL REPORTS: Glucose: 107 mg/dl Treatment strategy for malignancy (PET staging): Restaging (PS) TECHNIQUE: Imaging protocol: Following at least four-hour fasting and following the injection of radiopharmaceutical, low dose CT images were obtained. Then, PET images were obtained. Attenuation corrected images were constructed using the CT scan. Fused images of PET and CT were reviewed. The standardized uptake values (SUV) reported below are maximum values within a region of interest, expressed in gm/ml. Exam includes orbital meatal line to mid-thigh. Radiopharmaceutical: 12.18 mCi F-18 FDG (Fluorodeoxyglucose), IV. Time of imaging post radiopharmaceutical administration: 1 hour Injection site: right AC COMPAR[facility]: [facility] SUB[facility] [id number] 09/03/2022 12:49 PM FINDINGS: Brain: Visualized brain has normal physiologic uptake. Pharynx: No abnormal uptake. Larynx: No abnormal uptake. Lungs, pleura and trachea: No abnormal uptake. Heart: Normal physiologic uptake. Mediastinal space: No abnormal uptake. Liver: There is a new mildly hypermetabolic 1 cm lesion in the right hepatic lobe with SUV max 2.1. Gallbladder and bile ducts: Cholecystectomy with choledochojejunostomy. Pancreas: New hypermetabolic soft tissue density at the pancreaticojejunostomy with SUV max 4.1 on image 128. Prior Whipple procedure. Spleen: No abnormal uptake. Adrenal glands: No abnormal uptake. Kidneys and ureters: Normal physiologic uptake. Stomach and bowel: A couple foci of increased FDG uptake are seen in the right lower quadrant which appear to correspond to loops of small bowel with SUV max 4.3. Changes of prior gastrojejunostomy. No bowel obstruction. Vasculature: No abnormal uptake. Lymph nodes: No abnormal uptake. No lymphadenopathy in the head, neck, chest, abdomen, pelvis, and extremities. Bones/joints: No abnormal uptake in the visualized axial and appendicular skeleton. Soft tissues: New hypermetabolic soft tissue density lesion adjacent to the IVC with SUV max 5.9. This measures approximately 2.1 x 2.2 cm and appears to surround some surgical clips. [facility] SUBSEQ [id number] IMPRESSION: 1. Interval disease progression with two new hypermetabolic soft tissue density lesions in the upper abdomen, one in the region of the pancreaticojejunostomy and one adjacent to the IVC. 2. Mildly hypermetabolic 1 cm lesion in the right hepatic lobe is also concerning for a metastasis. MRI could further evaluate. 3. A couple foci of increased FDG uptake are seen in the right lower quadrant which appear to correspond to loops of small bowel. These are of uncertain significance.
== END 2023-06-27 08:02 | disposition home or self-care (01) ==
PROVIDERS: PCP Family Medicine; Visit Provider Internal Medicine Medical Oncology
DX: C25.0 Malignant neoplasm of head of pancreas (principal); Z98.890 Other specified postprocedural states; K31.9 Disease of stomach and duodenum, unspecified; K76.9 Liver disease, unspecified; Z90.49 Acquired absence of other specified parts of digestive tract
CPT/HCPCS: 78815; A9552

== ENCOUNTER 2023-07-16 17:32 | Observation (INO) | payer MEDICARE, SELFPAY ==
[2023-07-16] VITALS (8 sets, daily range): BP systolic 112–145; BP diastolic 72–85; PULSE 82–102; RESP 15–17; TEMP 36.7–37.1; O2SAT 93–98; BMI 22.1
[2023-07-16 18:27] LABS: Basophils % 0.2 %; Eosinophils % 0.2 %; Hematocrit 30.8 % (36-47); Lymphocytes # 0.8 10^3/uL (0.8-4.8); Lymphocytes % 11.6 %; Mean Corpuscular HGB Conc 33.1 g/dL (30-55); Mean Corpuscular Hemoglobin 31.2 pg (27-33); Mean Corpuscular Volume 94.2 fl (85-98); Mean Platelet Volume 9.3 fL (7.4-10.4); Monocytes # 0.5 10^3/uL (0.2-0.9); Monocytes % 7.6 %; Neutrophils # 5.22 10^3/uL (1.8-7.7); Neutrophils % 80.2 %; Nucleated Red Blood Cells % 0 %; Platelet Count 121 10^3/cmm (157-399); Red Blood Count 3.27 10^6/uL (3.85-5.65); Red Cell Distribution Width 14.5 % (12.1-15.1); White Blood Count 6.49 10^3/uL (3.29-11.43)
--- NOTE | 2023-07-16 18:30 | CTR_ITS ---
PROCEDURE INFORMATION: Exam: CT Abdomen And Pelvis With Contrast Exam date and time: 07/16/2023 7:07 PM Age: 73 years old Clinical indication: Nausea and vomiting; Abdominal pain; Prior surgery; Surgery date: 6+ months; Surgery type: Gb. Whipple. Tubal. Patient HX: C/O mid/periumbilical pain with n/v and dysuria. History of pancreatic cancer. ; Additional info: Severe abd pain and tenderness TECHNIQUE: Imaging protocol: Computed tomography of the abdomen and pelvis with contrast. Radiation optimization: All CT scans at this facility use at least one of these dose optimization techniques: automated exposure control; mA and/or kV adjustment per patient size (includes targeted exams where dose is matched to clinical indication); or iterative reconstruction. Contrast material: OMNI 350; Contrast volume: 80 ml; Contrast route: INTRAVENOUS (IV); COM[facility]: [facility] [id number] 06/27/2023 8:49 AM RADIATION DOSE METRICS: Total DLP (mGy-cm): 397.04 FINDINGS: Liver: Severe hepatic steatosis. 1.5 cm right hepatic lesion series 3, image 16. Gallbladder and bile ducts: No acute findings. Pancreas: Post Whipple changes. Similar appearance with pancreatic tail ductal dilatation. Spleen: No splenomegaly. Small splenic hypodensity on axial image 36 which has the appearance suggestive of a lymphangioma. Adrenal glands: No mass. Kidneys and ureters: No stones or hydronephrosis. Stomach and bowel: No obstruction. Nonspecific fluid-filled loops of small bowel in the right lower quadrant Appendix: No evidence of appendicitis. Intraperitoneal space: Moderate volume abdominopelvic free fluid. Vasculature: No abdominal aortic aneurysm. Lymph nodes: No enlarged lymph nodes. Urinary bladder: Incompletely distended. Reproductive: No acute findings. Bones/joints: No acute findings. Soft tissues: Small ventral fat containing abdominal wall hernia. CT/CT abdomen pelvis w con* [id number] IMPRESSION: New moderate volume abdominopelvic free fluid/ascites. Nonspecific fluid-filled loops of small bowel could represent enteritis. No bowel obstruction. Severe hepatic steatosis. Enlarging 1.5 cm right hepatic lesion. Given provided history recommend hepatic MRI for further characterization.
[2023-07-16] MEDS: sodium chloride 0.9% 1,000 ML 999 ML IV (18:33)
[2023-07-16] MEDS: ondansetron 2 mg/ML SDV 2 mL 4 MG IVP (18:35)
[2023-07-16] MEDS: morphine 4 mg/mL SDV 1 mL IVP ×2 (18:35→20:36)
[2023-07-16 18:54] LABS: Alanine Aminotransferase 23 U/L (0-33); Albumin Level 3.2 g/dL (3.5-5.2); Alkaline Phosphatase 214 U/L (35-105); Anion Gap 15.7 (5-19); Aspartate Amino Transferase 53 U/L (0-32); Blood Urea Nitrogen 8 mg/dL (8-23); Calcium 7.8 mg/dL (8.5-10.5); Carbon Dioxide 22 mmol/L (22-29); Chloride 102 mmol/L (98-107); Creatinine Clr Calc Pharmacy 57.9165; Globulin 2.4 g/dL (1.3-4.6); Glucose 111 mg/dL (65-115); Lipase 4 U/L (13-60); Osmolality Calculated 281 mOsm/kg (285-295); Potassium 3.7 mmol/L (3.5-5.1); Sodium 136 mmol/L (136-145); Total Bilirubin 0.7 mg/dL (0.15-1.2); Total Protein 5.6 g/dL (6.6-8.7)
[2023-07-16] MEDS: iohexol 350 mg/mL 500 mL Btl (per mL) IV (19:07)
[2023-07-16 19:37] LABS: Add Urine Microscopic? NO; Charge for UA Resulting for Rev
[2023-07-16 19:39] LABS: Bilirubin Urine Neg (Negative); Blood Urine Neg (Negative); Glucose Urine UA Norm (Normal); Ketones Urine 1+ (Negative); Leukocyte Esterase Urine Negative (Negative); Nitrate Urine Negative (Negative); Protein Urine Neg (Negative); Urine Appearance Clear (CLEAR); Urine Color Yellow (Yellow); Urobilinogen Urine Neg (Negative); pH Urine 5 (5-7)
--- NOTE | 2023-07-16 21:12 | W.ED.ABDPA2 ---
HPI - Abdominal Pain General: Chief Complaint: Abdominal Pain Stated Complaint: abd pain Time Seen by Provider: 07/16/23 17:49 Source: patient and family Mode of arrival: ambulatory Limitations: no limitations History of Present Illness: Abdominal pain going on for 3 days. Gradually worsening. She thought she was constipated so she been taking MiraLAX and has not improved anything. Now having bilateral flank pain today that radiates down to her hips and described as labile cranes that comes and goes. Painful urination as well she reports she had a low-grade temp around 100 last night. Nausea vomiting starting last night as well. She has tried heat ice Tylenol has a history of incisional hernia secondary to her Whipple. Review of Systems General: Reports: 10 or more systems reviewed and unremarkable except in HPI and below PFSH ED PFSH: Medical History Incisional hernia Hypertension Diabetes mellitus Depression T11 vertebral fracture Hepatic steatosis Weight loss Pancreatic adenocarcinoma Surgical History Hx of colonoscopy 2018- [facility] hx of polyps Hx of esophagogastroduodenoscopy 2018 [facility] History of bilateral carpal tunnel release History of tubal ligation History of insertion of tunneled central venous catheter (CVC) with port History of cholecystectomy History of Whipple procedure Family History Father Dementia CAD (coronary artery disease) Diabetes Mother Diabetes Uterine cancer Other Hypertension Social History Smoking and tobacco/nicotine status: former use of tobacco/nicotine Quit status (tobacco/nicotine): has quit using Year quit tobacco: 2012 Former quit date comment: Smoked x 40 years Alcohol intake: former Substance/Drug Use: never Lives independently: Yes Household members: spouse Marital status: Number of children: 1 Number of grandchildren: 1 Current occupational status: retired 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, 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 Leisure activites: fishing and other Leisure activities details: gardening Joann/Synagogue: [employer] Special joann needs: No Agree to transfusion: Yes Physical Exam Const: COMMON NORMALS: no acute distress, average body habitus, patient oriented x3, healthy appearing, alert and well nourished GENERAL APPEARANCE: well kempt and well developed HENMT: COMMON NORMALS: normocephalic, atraumatic, external ears normal and moist oral mucous membranes HEAD & SCALP: normocephalic and atraumatic EXTERNAL EAR: Yes external ears normal Eye: COMMON NORMALS: Equal, round and reactive pupils present, EOMs intact bilaterally and conjunctivae normal CONJUNCTIVA: Yes conjunctivae normal PUPIL: Yes Equal, round and reactive pupils present Neck/C-Spine: COMMON NORMALS: full ROM, no lymphadenopathy and supple Chest: CHEST: Yes Symmetrical chest wall rise and No Surgical scars present (Chest) Resp: COMMON NORMALS: normal respiratory effort, No retractions, No use of accessory muscles and clear to auscultation bilaterally AUSCULTATION: clear to auscultation bilaterally Cardio: COMMON NORMALS: regular rate, regular rhythm, S1 normal heart sound present, S2 normal heart sound present, No gallops present (Cardio), No clicks present (Cardio), No murmurs present (Cardio) and No rub (Cardio) RATE: regular rate RHYTHM: regular rhythm HEART SOUNDS: S1 normal heart sound present, S2 normal heart sound present and no murmurs PERIPHERAL PULSES: other (Radial pulses 2+ and symmetric) GI: COMMON NORMALS: Soft to palpation and no masses INSPECTION: Yes abdominal distension, Yes visible herniation and Yes Fluid wave present AUSCULTATION: Yes normoactive bowel sounds PALPATION: Yes Soft to palpation, Yes Tenderness to palpation present (GI), Yes Guarding due to palpation present (GI), No Rigid due to palpation, No Splenomegaly present and Yes Hernia present other (Incisional nontender) PERCUSSION: dullness to percussion and Fluid wave present : COMMON NORMALS: Yes no CVA tenderness BLADDER/KIDNEY EXAM: Yes no CVA tenderness EXTERNAL FEMALE EXAM: Yes Hernia present Back/Pelvis: COMMON NORMALS: no CVA tenderness Extremity: COMMON NORMALS: normal to inspection, full ROM, capillary refill normal and no clubbing, cyanosis or edema Neuro: COMMON NORMALS: patient oriented x3 SENSORIUM/ORIENTATION: Yes alert Psych: APPEARANCE: Yes well kempt Skin: COMMON NORMALS: no rashes or lesions noted, no wounds, turgor normal and no jaundice GENERAL SKIN EXAM: no rashes or lesions noted and turgor normal Course Vital Signs: Vital signs: Vital Signs Temperature 98.1 F 06/02/24 17:37 Pulse Rate 88 07/16/23 20:06 Respiratory Rate 16 07/16/23 20:36 Blood Pressure 132/83 07/16/23 20:06 Pulse Oximetry 97 07/16/23 20:36 Oxygen Delivery Me thod Room Air 07/16/23 20:06 MDM - Abdominal Pain Medical Decision Making Patient with a history of pancreatic adenocarcinoma. Have been improving after her Whipple but CA125 started coming up this year. A recent PET scan was done 2 weeks ago and is found to have increased uptake. She had a follow-up scheduled with her oncologist this week. I have reviewed her PET scan with her as well as her CT scan from today. CT shows enteritis and ascites. Likely her pain is secondary to both of these things. Her pain is intractable and there is no way to get her further pain control at home after hours this evening. Patient will be admitted observation for intractable pain secondary to her metastatic adenocarcinoma. I have reviewed these things with her. As well as with the hospitalist Dr. Baeza. May benefit from further inpatient stay given her ascites with having to start Lasix and her lactone. She has had 3 days of severe pain unable to sleep. Now having nausea vomiting as well. Differential Diagnosis Likely abdominal pain, calculus of kidney, constipation, gastroenteritis, pancreatitis and small bowel obstruction Medical Records I reviewed the patient's medical records. Lab Data I reviewed the patient's lab results. 07/16/23 18:18 07/16/23 18:18 Labs/Radiology: Radiology Impressions Abdomen/Pelvis CT 07/16/23 18:30 IMPRESSION: New moderate volume abdominopelvic free fluid/ascites. Nonspecific fluid-filled loops of small bowel could represent enteritis. No bowel obstruction. Severe hepatic steatosis. Enlarging 1.5 cm right hepatic lesion. Given provided history recommend hepatic MRI for further characterization. Laboratory Results WBC 6.49 10^3/uL (3.29-11.43) 07/16/23 18:18 RBC 3.27 10^6/uL (3.85-5.65) L 07/16/23 18:18 Hgb 10.20 g/dL (11.27-16.99) L 07/16/23 18:18 Hct 30.8 % (36-47) L 07/16/23 18:18 MCV 94.2 fl (85-98) 07/16/23 18:18 MCH 31.2 pg (27-33) 07/16/23 18:18 MCHC 33.1 g/dL (30-55) 07/16/23 18:18 RDW 14.5 % (12.1-15.1) 07/16/23 18:18 Plt Count 121 10^3/cmm (157-399) L 07/16/23 18:18 MPV 9.3 fL (7.4-10.4) 07/16/23 18:18 Neut % (Auto) 80.2 % 07/16/23 18:18 Lymph % (Auto) 11.6 % 07/16/23 18:18 [place] % (Auto) 7.6 % 07/16/23 18:18 Eos % (Auto) 0.2 % 07/16/23 18:18 Baso % (Auto) 0.2 % 07/16/23 18:18 Neut # (Auto) 5.22 10^3/uL (1.8-7.7) 07/16/23 18:18 Lymph # (Auto) 0.8 10^3/uL (0.8-4.8) 07/16/23 18:18 [place] # (Auto) 0.5 10^3/uL (0.2-0.9) 07/16/23 18:18 Eos # (Auto) 0.0 10^3/uL (0.0-0.8) 07/16/23 18:18 Baso # (Auto) 0.0 10^3/uL (0.0-0.1) 07/16/23 18:18 Nucleated RBC % (auto) 0 % 07/16/23 18:18 Nucleated RBCs # 0.0 /100WBC 07/16/23 18:18 Sodium 136 mmol/L (136-145) 07/16/23 18:18 Potassium 3.7 mmol/L (3.5-5.1) 07/16/23 18:18 Chloride 102 mmol/L (98-107) 07/16/23 18:18 Carbon Dioxide 22 mmol/L (22-29) 07/16/23 18:18 Anion Gap 15.7 (5-19) 07/16/23 18:18 BUN 8 mg/dL (8-23) 07/16/23 18:18 Creatinine 0.6 mg/dL (0.5-0.9) 07/16/23 18:18 GFR Calculation Not Reportable 07/16/23 18:18 Glucose 111 mg/dL (65-115) 07/16/23 18:18 Calculated Osmolality 281 mOsm/kg (285-295) L 07/16/23 18:18 Calcium 7.8 mg/dL (8.5-10.5) L 07/16/23 18:18 Total Bilirubin 0.7 mg/dL (0.15-1.2) 07/16/23 18:18 AST 53 U/L (0-32) H 07/16/23 18:18 ALT 23 U/L (0-33) 07/16/23 18:18 Alkaline Phosphatase 214 U/L (35-105) H 07/16/23 18:18 Total Protein 5.6 g/dL (6.6-8.7) L 07/16/23 18:18 Albumin 3.2 g/dL (3.5-5.2) L 07/16/23 18:18 Globulin 2.4 g/dL (1.3-4.6) 07/16/23 18:18 Lipase 4 U/L (13-60) L 07/16/23 18:18 Urine Color Yellow (Yellow) 07/16/23 19:31 Urine Appearance Clear (CLEAR) 07/16/23 19:31 Urine pH 5 (5-7) 07/16/23 19:31 Ur Specific [place] 1.010 (1.005-1.030) 07/16/23 19:31 Urine Protein Neg (Negative) 07/16/23 19:31 Urine Glucose (UA) Norm (Normal) 07/16/23 19:31 Urine Ketones 1+ (Negative) H 07/16/23 19:31 Urine Blood Neg (Negative) 07/16/23 19:31 Urine Nitrate Negative (Negative) 07/16/23 19:31 Urine Bilirubin Neg (Negative) 07/16/23 19:31 Urine Urobilinogen Neg mg/dL (Negative) 07/16/23 19:31 Ur Leukocyte Esterase Negative (Negative) 07/16/23 19:31 All radiology interpretation(s) finalized by discharge ED provider radiology interpretation(s): CT scan of the abdomen performed and shows ascites and appears to have some thickened bowel patel. Await further details from radiology. Discharge Plan Discharge Patient Disposition: Placed in Observation Admit Provider: Alexsander Baeza Clinical Impression: Intractable abdominal pain, Primary pancreatic cancer , Abnormal gastrointestinal PET scan, Recurrent adenocarcinoma of pancreas, Enteritis Abdominal ascites Qualifiers: Ascites type: other type Qualified Code(s): R18.8 - Other ascites Coding Level of Care Code ED Radiology Nurse for Radha [facility]
--- NOTE | 2023-07-16 22:51 | P.HP_ITS ---
Providers/Chief Complaint 2 Admitting Physician: Alexsander Baeza Primary Care Provider: Lisa Dickerson MD Chief Complaint: abd pain History of Present Illness Pleasant 73-year-old lady with history of pancreatic cancer status post neoadjuvant chemotherapy, Whipple procedure in September 2022, was doing well after follow-up, however, has had recent increasing CA 19-9 with concern for recurrence, has been scheduled for PET/CT and has an appointment with oncology on Monday. Comes in to ER due to abdominal pain being quite bothersome without good response to hydrocodone she has been taking at home. CT abdomen pelvis with severe hepatic steatosis, enlarging 1.5 cm right hepatic lesion, recommended hepatic MRI for further characterization, nonspecific fluid- filled loops of small bowel representing enteritis, no obstruction. New moderate volume abdominal pelvic free fluid/ascites. Review of Systems 2 Const: Denies: fever(s), chills, body aches or malaise Eyes: Denies: change in vision ENMT: Denies: throat pain Card: Reports: swelling of feet/ankles; Denies: chest pain, pre-syncope or dyspnea on exertion Resp: Denies: dyspnea, productive cough, change in phlegm color or hemoptysis GI: Reports: abdominal pain and bloating; Denies: nausea, vomiting, diarrhea, constipation, hematochezia or melena : Denies: flank pain, urinary frequency or hematuria Musc: Denies: back pain, joint swelling or joint redness Skin/Breast: Denies: rash or new lesions Neuro: Denies: headache(s) or confusion Medications/Allergies Home Medications Medication Instructions Recorded Confirmed Last Taken Type lorazepam 1 mg tablet 1 mg PO Q6H PRN 02/14/23 07/07/23 Unknown History multivitamin (Daily Multi-Vitamin 1 tab PO DAILY 02/14/23 07/07/23 Unknown History tablet) hydrocodone 5 mg-acetaminophen 325 2 tab PO Q6H PRN pain 3 days #20 03/01/23 07/07/23 Unknown Rx mg tablet tabs cholecalciferol (vitamin D3) 50 50 mcg PO DAILY 04/25/23 07/07/23 Unknown History mcg (2,000 unit) capsule lisinopril 10 mg tablet 10 mg PO DAILY #90 tabs 05/11/23 07/07/23 Unknown Rx sertraline 100 mg tablet See Rx Instructions .Route 04/02/24 05/24/24 Unknown Rx .COMPLEX #90 tabs pantoprazole 40 mg tablet,delayed 40 mg PO DAILY #90 tabs 05/29/23 07/07/23 Unknown Rx release (Protonix) Allergies Allergy/AdvReac Type Severity Reaction Status Date / Time penicillin G Allergy rash, Verified 07/16/23 17:43 trouble breathing tetracycline Allergy stomach Verified 07/16/23 17:43 pain PFSH Acute 2 PFSH: Medical History Incisional hernia Hypertension Diabetes mellitus Depression T11 vertebral fracture Hepatic steatosis Weight loss Pancreatic adenocarcinoma Surgical History Hx of colonoscopy 2018- [facility] hx of polyps Hx of esophagogastroduodenoscopy 2018 [place] History of bilateral carpal tunnel release History of tubal ligation History of insertion of tunneled central venous catheter (CVC) with port History of cholecystectomy History of Whipple procedure Family History Father Dementia CAD (coronary artery disease) Diabetes Mother Diabetes Uterine cancer Other Hypertension Social History Smoking and tobacco/nicotine status: former use of tobacco/nicotine Quit status (tobacco/nicotine): has quit using Year quit tobacco: 2012 Former quit date comment: Smoked x 40 years Alcohol intake: former Substance/Drug Use: never Lives independently: Yes Household members: spouse Marital status: Number of children: 1 Number of grandchildren: 1 Current occupational status: retired 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, 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 Leisure activites: fishing and other Leisure activities details: gardening Joann/Christianity: [employer] Special joann needs: No Agree to transfusion: Yes Vitals/I&O/Wt Last Vital Signs Temp 98.1 F 07/16/23 17:37 Pulse 88 07/16/23 20:06 Resp 16 07/16/23 20:36 BP 132/83 07/16/23 20:06 Pulse Ox 97 07/16/23 20:36 O2 Del Method Room Air 07/16/23 20:06 07/16/23 07/16/23 07/16/23 06:59 14:59 22:59 Intake Total 1000 / 1000 Balance 1000 / 1000 Weight last 48 hrs Weight 56.699 kg Physical Exam 2 Const: COMMON NORMALS: patient oriented x3 and alert GENERAL APPEARANCE: c ooperative ORIENTATION/CONSCIOUSNESS: Yes awake HENMT: COMMON NORMALS: oropharynx normal Neck/C-Spine: COMMON NORMALS: no JVD Resp: COMMON NORMALS: normal respiratory effort and clear to auscultation bilaterally AUSCULTATION: clear to auscultation bilaterally Cardio: COMMON NORMALS: no JVD, regular rhythm, S1 normal heart sound present, S2 normal heart sound present and No murmurs present (Cardio) RHYTHM: regular rhythm HEART SOUNDS: S1 normal heart sound present and S2 normal heart sound present GI: COMMON NORMALS: Soft to palpation INSPECTION: Yes abdominal distension PALPATION: Yes Soft to palpation and Yes Tenderness to palpation present (GI) Extremity: COMMON NORMALS: no joint enlargement and no pedal edema Neuro: COMMON NORMALS: patient oriented x3 and moves all extremities S ENSORIUM/ORIENTATION: Yes alert Skin: COMMON NORMALS: no rashes or lesions noted GENERAL SKIN EXAM: no rashes or lesions noted Data 07/16/23 18:18 07/16/23 18:18 A&P Assessment and plan (1) Intractable abdominal pain: Came in with difficult to control pain, pain 8/10, despite taking her usual hydrocodone 10 mg every 6 hours, noted ascites, enlarging hepatic lesion, suspicion for recurrence of pancreatic cancer, possibly malignant ascites. She has been scheduled for PET/CT, has a follow-up appointment with oncology on Monday. Consider getting in touch with the oncologist in the morning, for further consideration of paracentesis, although she does state that she would rather not go through more chemotherapy. It will still be good for her to discuss with oncology regarding available options. Noted some chronic correlation with loss, today mild ovation of AST, T. bili and ALT normal. Follow-up with her primary. Lipase reviewed and normal. Reviewed vitals, CBC, CMP, UA, CT abdomen pelvis, ER note, discussed with ER provider. Tick panel has also been obtained in ER and pending. Discussed with her we will optimize pain control, continue her hydrocodone, will add IV morphine for breakthrough pain, bowel regimen for risk of constipation, discussed with her, reassess response to pain control. CT abdomen pelvis with severe hepatic steatosis, enlarging 1.5 cm right hepatic lesion, recommended hepatic MRI for further characterization, nonspecific fluid- filled loops of small bowel representing enteritis, no obstruction. New moderate volume abdominal pelvic free fluid/ascites. In the meantime (2) Abdominal ascites: Ascites symptomatic with abdominal distention, also having abdominal pain as above. Otherwise without signs of infection, afebrile, no leukocytosis, tachycardia, other SIRS criteria. Will give a dose of Lasix, start spironolactone. Question of possible malignant ascites, she would rather came at the, please start Not abdomen base with her oncologist in the morning regarding possible options.. Qualifiers: Ascites type: other type Qualified Code(s): R18.8 - Other ascites Plan Pancreatic adenocarcinoma status post neoadjuvant chemo and Whipple's procedure with recently rising CA 19-9, pending PET/CT and follow-up with oncology. Reviewed oncology note. HTN: Monitor blood pressure, cardiac diet. Regular to confirm her home medications. DM2: Monitor Accu-Cheks, sliding scale insulin. CC diet. Hepatic steatosis Requesting to confirm home medications, please review and resume as appropriate once available. Attestations 2 Medical Necessity Statement*: Place in observation for additional assessment and management of bothersome abdominal pain not responding to usual pain treatment. and High MDM includes amount and/or complexity of data reviewed/ordered [ previous or external records, resulted lab(s)/test(s), ordered lab(s)/test(s) and other healthcare professional discussion] and described risk of complication, morbidity or mortality of management as documented Diagnoses Intractable abdominal pain R10.9 Abdominal ascites R18.8 Ascites type: other type
[2023-07-17] VITALS (7 sets, daily range): BP systolic 93–125; BP diastolic 56–78; PULSE 75–85; RESP 16–17; TEMP 36.8–37.2; O2SAT 93–95
[2023-07-17] MEDS: enoxaparin 40 mg/0.4 mL Syringe SUBCUT ×2 (00:30→23:27)
[2023-07-17] MEDS: spironolactone 25 mg Tablet PO ×2 (00:30→09:15)
[2023-07-17] MEDS: FUROsemide 10 mg/mL SDV 2mL 20 MG IVP (00:32)
[2023-07-17 03:29] LABS: Basophils % 0.2 %; Eosinophils % 0.5 %; Lymphocytes % 17.7 %; Mean Corpuscular HGB Conc 32.9 g/dL (30-55); Mean Corpuscular Hemoglobin 31.7 pg (27-33); Mean Corpuscular Volume 96.3 fl (85-98); Mean Platelet Volume 9.7 fL (7.4-10.4); Monocytes # 0.5 10^3/uL (0.2-0.9); Neutrophils # 4.13 10^3/uL (1.8-7.7); Neutrophils % 73.1 %; Nucleated Red Blood Cells % 0 %; Platelet Count 123 10^3/cmm (157-399); Red Blood Count 3.22 10^6/uL (3.85-5.65); Red Cell Distribution Width 14.6 % (12.1-15.1); White Blood Count 5.65 10^3/uL (3.29-11.43)
[2023-07-17 03:52] LABS: Alanine Aminotransferase 20 U/L (0-33); Albumin Level 2.9 g/dL (3.5-5.2); Alkaline Phosphatase 193 U/L (35-105); Anion Gap 11.3 (5-19); Aspartate Amino Transferase 45 U/L (0-32); Blood Urea Nitrogen 7 mg/dL (8-23); Calcium 7.5 mg/dL (8.5-10.5); Carbon Dioxide 25 mmol/L (22-29); Chloride 105 mmol/L (98-107); Creatinine Clr Calc Pharmacy 59.4291; Globulin 2.1 g/dL (1.3-4.6); Glucose 75 mg/dL (65-115); Magnesium 1.6 mg/dL (1.7-2.3); Osmolality Calculated 283 mOsm/kg (285-295); Phosphorus 3.2 mg/dL (2.5-4.5); Potassium 3.3 mmol/L (3.5-5.1); Sodium 138 mmol/L (136-145); Total Bilirubin 0.6 mg/dL (0.15-1.2)
--- NOTE | 2023-07-17 09:33 | PC.CHAP ---
Pastoral Care Encounter/Spiritual Assessment Type of Contact [] Declined risk officer visit [] Patient/Family/Request visit [] Outpatient visit [] Follow-up visit [] Physician referral [] Code/Alert [x] Routine visit [] Staff referral [] Actively dying [] Patient sleeping [] Family support [] [] Out of room [] Palliative care [] [x] Receiving care in room [] Pre-surgical visit [] Trauma [] Long length of stay [] ICU visit [] Other: Relational/Emotional Strength [] Patient feels connected with others/family/visitors/staff [] Distress [] Loneliness/isolation [] Abandonment Spirituality of Patient [] Person of Joann [] Attends Tenriism of their Joann [] Believes in Prayer [] Reads Bible or Hinduism materials [] There are Spiritual issues to be addressed Dairy Nutritionist Interventions [] Prayer [] Active listening [] Non-anxious presence [] Spiritual/emotional support [] Crisis/trauma care [] Spiritual counseling [] Bereavement support [] Provided bereavement packet [] Provided Bible/devotional materials [] Provided toy/stuffed animal, coloring book to patient or family member [] Provided Communion [] Anointing/[place] [] Salvation [] Completed spiritual assessment [] Other: Impact on Illness or Injury [] Angry [] Fearful [] Anxious [] Often cries [] Exhaustion [] Unable to work [] Unable to attend mormon [] Unable to walk/stand [] Unable to read [] Unable to drive [] Unable to eat/drink [] Unable to sleep [] Unable to be with family [] Patient intubated [] Other: Summary Time spent with patient
--- NOTE | 2023-07-17 12:15 | P.PN_ITS ---
Subjective 2 Subjective: pain is better but still present states had a pet scan earlier this month 1. Interval disease progression with t wo new hypermetabolic soft tissue density lesions in the upper abdomen, one in the region of the pancreaticojejunostomy and one adjacent to the IVC. 2. Mildly hypermetabolic 1 cm lesion i n the right hepatic lobe is also concerning for a metastasis. MRI could further evaluate. 3. A couple foci of increased FDG upta ke are seen in the right lower quadrant which appear to correspond to loops of small bowel. These are of uncertain significance. has f/u appointment with dr. mahoney but has not made it there yet . would like to know options for cancer however not interested in chemo at this time. tick panel pending Vitals/I&O/Wt Last Vital Signs Temp 98.6 F 07/17/23 11:19 Pulse 81 07/17/23 11:19 Resp 17 07/17/23 11:19 BP 93/56 07/17/23 11:19 Pulse Ox 95 07/17/23 11:19 O2 Del Method Room Air 07/17/23 11:19 07/16/23 07/17/23 07/17/23 22:59 06:59 14:59 Intake Total 1000 / 1000 118 / 118 Output Total 500 / 500 Balance 1000 / 1000 -382 / -382 Weight last 48 hrs Weight 58.06 kg Weight 58.06 kg Weight 60.413 kg Weight 56.699 kg Physical Exam 2 Const: COMMON NORMALS: patient oriented x3 and alert GENERAL APPEARANCE: c ooperative ORIENTATION/CONSCIOUSNESS: Yes awake HENMT: COMMON NORMALS: oropharynx normal Neck/C-Spine: COMMON NORMALS: no JVD Resp: COMMON NORMALS: normal respiratory effort and clear to auscultation bilaterally AUSCULTATION: clear to auscultation bilaterally Cardio: COMMON NORMALS: no JVD, regular rhythm, S1 normal heart sound present, S2 normal heart sound present and No murmurs present (Cardio) RHYTHM: regular rhythm HEART SOUNDS: S1 normal heart sound present and S2 normal heart sound present GI: COMMON NORMALS: Soft to palpation INSPECTION: Yes abdominal distension PALPATION: Yes Soft to palpation and Yes Tenderness to palpation present (GI) Extremity: COMMON NORMALS: no joint enlargement and no pedal edema Neuro: COMMON NORMALS: patient oriented x3 and moves all extremities S ENSORIUM/ORIENTATION: Yes alert Skin: COMMON NORMALS: no rashes or lesions noted GENERAL SKIN EXAM: no rashes or lesions noted Data 07/17/23 03:07 07/17/23 03:07 A&P Assessment and plan (1) Intractable abdominal pain: Came in with difficult to control pain, pain 8/10, despite taking her usual hydrocodone 10 mg every 6 hours, noted ascites, enlarging hepatic lesion, suspicion for recurrence of pancreatic cancer, possibly malignant ascites. She has been scheduled for PET/CT, has a follow-up appointment with oncology on Monday. Consider getting in touch with the oncologist in the morning, for further consideration of paracentesis, although she does state that she would rather not go through more chemotherapy. It will still be good for her to discuss with oncology regarding available options. Noted some chronic correlation with loss, today mild ovation of AST, T. bili and ALT normal. Follow-up with her primary. Lipase reviewed and normal. Reviewed vitals, CBC, CMP, UA, CT abdomen pelvis, ER note, discussed with ER provider. Tick panel has also been obtained in ER and pending. Discussed with her we will optimize pain control, continue her hydrocodone, will add IV morphine for breakthrough pain, bowel regimen for risk of constipation, discussed with her, reassess response to pain control. CT abdomen pelvis with severe hepatic steatosis, enlarging 1.5 cm right hepatic lesion, recommended hepatic MRI for further characterization, nonspecific fluid- filled loops of small bowel representing enteritis, no obstruction. New moderate volume abdominal pelvic free fluid/ascites. (2) Abdominal ascites: Ascites symptomatic with abdominal distention, also having abdominal pain as above. Otherwise without signs of infection, afebrile, no leukocytosis, tachycardia, other SIRS criteria. Will give a dose of Lasix, start spironolactone. Question of possible malignant ascites, Patient would like to know further options. Will call oncologist to discuss. Qualifiers: Ascites type: other type Qualified Code(s): R18.8 - Other ascites Plan Pancreatic adenocarcinoma status post neoadjuvant chemo and Whipple's procedure with recently rising CA 19-9, pending PET/CT and follow-up with oncology. Reviewed oncology note. HTN: Monitor blood pressure, cardiac diet. Regular to confirm her home medications. DM2: Monitor Accu-Cheks, sliding scale insulin. CC diet. Hepatic steatosis Requesting to confirm home medications, please review and resume as appropriate once available. Today's plan 07/16 I have reviewed patient's CT scan, PET scan, labs from this visit. I do not believe patient has SBP. She has been afebrile, white count is normal. Abdomen is nontender. There is evidence of ascites which may be malignant ascites at this point. It appears to be minimal at this time. I had a long discussion with the patient regarding further plan and prognosis. Patient states she is not interested in chemotherapy. She also states that when she had her Whipple's procedure done she did have a liver lesion and questions why it was not removed at that time. I tried to explain to the patient that resection of liver lesions cannot always be done and it depends on specific situations. Patient answered back stating doesn't the liver regenerate itself? Patient did decline postop chemotherapy after Whipple's. At this point she would like to know what further options there are to treat her recurrence of pancreatic cancer. I did tell her that options may be very limited and it is possible she may qualify for palliative chemotherapy however we will defer further decision-making to her oncologist. Tick panel has been sent however tickborne disease suspicion is low at this time. We will plan for pain control and plan to discharge patient home in a.m. I also discussed possible options of hospice with her since she is not interested in pursuing chemo. I did explain to patient that her prognosis is poor given the kind and extent of malignancy that she has. I also discussed with Dr. Mahoney over the phone. He would like to see patient in clinic this week on . Generally if patient's pain is better controlled by tomorrow we may be able to discharge her home with outpatient follow-up. Blood pressure has been soft. I would hold lisinopril. Spironolactone 25 twice daily, Lasix was started last night possibly for ascites. I would reduce spironolactone to 25 daily and hold off on Lasix for now. Attestations 2 Medical Necessity Statement*: Place in observation for additional assessment and management of bothersome abdominal pain not responding to usual pain treatment. Diagnoses Intractable abdominal pain R10.9 Abdominal ascites R18.8 Ascites type: other type
[2023-07-17] MEDS: HYDROcodone-acetaminophen 5-325 mg Tablet 2 TAB PO ×2 (13:31→20:16)
[2023-07-17] MEDS: ondansetron 2 mg/ML SDV 2 mL 4 MG IVP ×2 (14:37→23:35)
[2023-07-17] MEDS: morphine 4 mg/mL SDV 1 mL IVP (23:35)
[2023-07-18] VITALS: BP 124/79; PULSE 66; RESP 17; TEMP 37; O2SAT 96
[2023-07-18 04:00] VITALS: BP 104/61; PULSE 68; RESP 17; TEMP 36.6; O2SAT 95
[2023-07-18 06:04] LABS: Basophils % 0.4 %; Eosinophils # 0.1 10^3/uL (0.0-0.8); Eosinophils % 3.2 %; Hematocrit 28.1 % (36-47); Lymphocytes # 1.1 10^3/uL (0.8-4.8); Lymphocytes % 38.5 %; Mean Corpuscular HGB Conc 32.7 g/dL (30-55); Mean Corpuscular Hemoglobin 31.4 pg (27-33); Mean Corpuscular Volume 95.9 fl (85-98); Mean Platelet Volume 9.6 fL (7.4-10.4); Monocytes # 0.3 10^3/uL (0.2-0.9); Monocytes % 10.1 %; Neutrophils # 1.32 10^3/uL (1.8-7.7); Neutrophils % 47.4 %; Nucleated Red Blood Cells % 0 %; Platelet Count 129 10^3/cmm (157-399); Red Blood Count 2.93 10^6/uL (3.85-5.65); Red Cell Distribution Width 14.4 % (12.1-15.1); White Blood Count 2.78 10^3/uL (3.29-11.43)
[2023-07-18 06:19] LABS: Alanine Aminotransferase 18 U/L (0-33); Albumin Level 2.5 g/dL (3.5-5.2); Alkaline Phosphatase 172 U/L (35-105); Anion Gap 11.4 (5-19); Aspartate Amino Transferase 37 U/L (0-32); Blood Urea Nitrogen 6 mg/dL (8-23); Calcium 7.8 mg/dL (8.5-10.5); Carbon Dioxide 27 mmol/L (22-29); Chloride 107 mmol/L (98-107); Creatinine Clr Calc Pharmacy 59.0597; Globulin 2.2 g/dL (1.3-4.6); Glucose 112 mg/dL (65-115); Osmolality Calculated 292 mOsm/kg (285-295); Potassium 3.4 mmol/L (3.5-5.1); Sodium 142 mmol/L (136-145); Total Bilirubin 0.5 mg/dL (0.15-1.2); Total Protein 4.7 g/dL (6.6-8.7)
[2023-07-18 07:17] VITALS: BP 111/74; PULSE 65; RESP 17; TEMP 36.4; O2SAT 95
[2023-07-18] MEDS: spironolactone 25 mg Tablet PO (07:36)
--- NOTE | 2023-07-18 09:17 | P.DS_ITS ---
Discharge Providers Date of Admission: 07/16/23 22:25 Date of Discharge: July 18, 2023 Attending Provider at Admission: Alexsander Baeza Attending Provider at Discharge: Nellie Hagen MD Primary Care Provider: Lisa Dickerson MD Diagnoses at Discharge Discharge Diagnosis (1) Intractable abdominal pain: Status: Acute (2) Abdominal ascites: Status: Acute Qualifiers: Ascites type: other type Qualified Code(s): R18.8 - Other ascites Reason for Visit Reason for Visit: abd pain Hospital Course Hospital Course Patient admitted for abdominal pain. Scanning reveals progression of cancer. Discussed with Dr. Mahoney. Patient will be sent home on pain medication to follow-up with Dr. Mahoney as an outpatient tomorrow for further chemo options. Please see progress note for details. Physical Exam Const: COMMON NORMALS: patient oriented x3 and alert GENERAL APPEARANCE: cooperative ORIENTATION/CONSCIOUSNESS: Yes awake HENMT: COMMON NORMALS: oropharynx normal Neck/C-Spine: COMMON NORMALS: no JVD Resp: COMMON NORMALS: normal respiratory effort and clear to auscultation bilaterally AUSCULTATION: clear to auscultation bilaterally Cardio: COMMON NORMALS: no JVD, regular rhythm, S1 normal heart sound present, S2 normal heart sound present and No murmurs present (Cardio) RHYTHM: regular rhythm HEART SOUNDS: S1 normal heart sound present and S2 normal heart sound present GI: COMMON NORMALS: Soft to palpation INSPECTION: Yes abdominal distension PALPATION: Yes Soft to palpation and Yes Tenderness to palpation present (GI) Extremity: COMMON NORMALS: no joint enlargement and no pedal edema Neuro: COMMON NORMALS: patient oriented x3 and moves all extremities SENSORIUM/ORIENTATION: Yes alert Skin: COMMON NORMALS: no rashes or lesions noted GENERAL SKIN EXAM: no rashes or lesions noted Discharge Data Studies Completed and Pending Completed Studies During Hospitalization Category Date Time Status CT abdomen pelvis w con* [id number] Stat Cat Scan 07/16/23 18:30 Completed Pending at discharge Category Date Time Status Complete Blood Count w/Auto AM LABS Lab 07/19/23 04:00 Ordered Comprehensive Metabolic Panel AM LABS Lab 07/19/23 04:00 Ordered Tick Panel Stat Lab 07/16/23 19:54 Received Radiology Impressions Abdomen/Pelvis CT 07/16/23 18:30 IMPRESSION: New moderate volume abdominopelvic free fluid/ascites. Nonspecific fluid-filled loops of small bowel could represent enteritis. No bowel obstruction. Severe hepatic steatosis. Enlarging 1.5 cm right hepatic lesion. Given provided history recommend hepatic MRI for further characterization. Laboratory Results WBC 2.78 10^3/uL (3.29-11.43) L 07/18/23 05:29 RBC 2.93 10^6/uL (3.85-5.65) L 07/18/23 05:29 Hgb 9.20 g/dL (11.27-16.99) L 07/18/23 05:29 Hct 28.1 % (36-47) L 07/18/23 05:29 MCV 95.9 fl (85-98) 07/18/23 05:29 MCH 31.4 pg (27-33) 07/18/23 05:29 MCHC 32.7 g/dL (30-55) 07/18/23 05:29 RDW 14.4 % (12.1-15.1) 07/18/23 05:29 Plt Count 129 10^3/cmm (157-399) L 07/18/23 05:29 MPV 9.6 fL (7.4-10.4) 07/18/23 05:29 Neut % (Auto) 47.4 % 07/18/23 05:29 Lymph % (Auto) 38.5 % 07/18/23 05:29 [place] % (Auto) 10.1 % 07/18/23 05:29 Eos % (Auto) 3.2 % 07/18/23 05:29 Baso % (Auto) 0.4 % 07/18/23 05:29 Neut # (Auto) 1.32 10^3/uL (1.8-7.7) L 07/18/23 05:29 Lymph # (Auto) 1.1 10^3/uL (0.8-4.8) 07/18/23 05:29 [place] # (Auto) 0.3 10^3/uL (0.2-0.9) 07/18/23 05:29 Eos # (Auto) 0.1 10^3/uL (0.0-0.8) 07/18/23 05:29 Baso # (Auto) 0.0 10^3/uL (0.0-0.1) 07/18/23 05:29 Nucleated RBC % (auto) 0 % 07/18/23 05:29 Nucleated RBCs # 0.0 /100WBC 07/18/23 05:29 Sodium 142 mmol/L (136-145) 07/18/23 05:29 Potassium 3.4 mmol/L (3.5-5.1) L 07/18/23 05:29 Chloride 107 mmol/L (98-107) 07/18/23 05:29 Carbon Dioxide 27 mmol/L (22-29) 07/18/23 05:29 Anion Gap 11.4 (5-19) 07/18/23 05:29 BUN 6 mg/dL (8-23) L 07/18/23 05:29 Creatinine 0.6 mg/dL (0.5-0.9) 07/18/23 05:29 GFR Calculation Not Reportable 07/18/23 05:29 Glucose 112 mg/dL (65-115) 07/18/23 05:29 Calculated Osmolality 292 mOsm/kg (285-295) 07/18/23 05:29 Calcium 7.8 mg/dL (8.5-10.5) L 07/18/23 05:29 Phosphorus 3.2 mg/dL (2.5-4.5) 07/17/23 03:07 Magnesium 1.6 mg/dL (1.7-2.3) L 07/17/23 03:07 Total Bilirubin 0.5 mg/dL (0.15-1.2) 07/18/23 05:29 AST 37 U/L (0-32) H 07/18/23 05:29 ALT 18 U/L (0-33) 07/18/23 05:29 Alkaline Phosphatase 172 U/L (35-105) H 07/18/23 05:29 Total Protein 4.7 g/dL (6.6-8.7) L 07/18/23 05:29 Albumin 2.5 g/dL (3.5-5.2) L 07/18/23 05:29 Globulin 2.2 g/dL (1.3-4.6) 07/18/23 05:29 Lipase 4 U/L (13-60) L 07/16/23 18:18 Urine Color Yellow (Yellow) 07/16/23 19:31 Urine Appearance Clear (CLEAR) 07/16/23 19:31 Urine pH 5 (5-7) 07/16/23 19:31 Ur Specific [place] 1.010 (1.005-1.030) 07/16/23 19:31 Urine Protein Neg (Negative) 07/16/23 19:31 Urine Glucose (UA) Norm (Normal) 07/16/23 19:31 Urine Ketones 1+ (Negative) H 07/16/23 19:31 Urine Blood Neg (Negative) 07/16/23 19:31 Urine Nitrate Negative (Negative) 07/16/23 19:31 Urine Bilirubin Neg (Negative) 07/16/23 19:31 Urine Urobilinogen Neg mg/dL (Negative) 07/16/23 19:31 Ur Leukocyte Esterase Negative (Negative) 07/16/23 19:31 Vitals Last Vital Signs Temp 97.5 F L 07/18/23 07:17 Pulse 65 07/18/23 07:17 Resp 17 07/18/23 07:17 BP 111/74 07/18/23 07:17 Pulse Ox 95 07/18/23 07:17 O2 Del Method Room Air 07/18/23 07:17 Discharge Plan Discharge Patient Disposition: Home Condition: Stable Prescriptions: New spironolactone 25 mg Tablet 25 mg PO DAILY Qty: 30 0RF morphine 15 mg tablet 15 mg PO Q8H PRN (Reason: pain) Qty: 10 0RF Continued cholecalciferol (vitamin D3) 50 mcg (2,000 unit) capsule 50 mcg PO DAILY multivitamin [Daily Multi-Vitamin] Tablet 1 tab PO DAILY lorazepam 1 mg tablet 1 mg PO Q6H PRN (Reason: Anxiety) pantoprazole [Protonix] 40 mg tablet,delayed release (DR/EC) 40 mg PO DAILY Qty: 90 0RF sertraline 100 mg tablet 100 mg PO DAILY Discontinued hydrocodone-acetaminophen 5-325 mg tablet 2 tab PO Q6H PRN (Reason: pain) 3 Days Qty: 20 0RF lisinopril 10 mg tablet 10 mg PO DAILY Qty: 90 0RF Discharge Orders: Discharge Order (Routine); Ordered 07/18/23 Ordered By: Nellie Hagen Referrals: Lisa Dickerson MD [Primary Care Provider] - 1-3 days (We have notified your physician's clinic of the need for a follow-up appointment to be scheduled. If you have not heard from them within the next 2 business days, please call them directly. ) Ben Mahoney MD [Hospitalist] - 07/21/23 12:00 pm (We have notified your physician's clinic of the need for a follow-up appointment to be scheduled. If you have not heard from them within the next 2 business days, please call them directly. ) Discharge Diet: Cardiac Discharge Activity: Resume usual activity Patient Instructions: Abdominal Pain - Adult, Spironolactone (By mouth), Morphine, Slow Release (By mouth), Enteritis (GEN), Opioid Safety Discharge Attestations Time Spent in Discharge Care*: greater than 30 min Quality Metrics Clinical Quality Measures [ No reported AMI, CVA or VTE this stay] Coding Level of Care Code Acute Code for Chg Fwd Diagnoses Intractable abdominal pain R10.9 Abdominal ascites R18.8 Ascites type: other type
--- NOTE | 2023-07-18 09:50 | PC.CHAP ---
Pastoral Care Encounter/Spiritual Assessment Type of Contact [] Declined patent clerk visit [] Patient/Family/Request visit [] Outpatient visit [] Follow-up visit [] Physician referral [] Code/Alert [x] Routine visit [] Staff referral [] Actively dying [] Patient sleeping [] Family support [] [] Out of room [] Palliative care [] [] Receiving care in room [] Pre-surgical visit [] Trauma [] Long length of stay [] ICU visit [] Other: Relational/Emotional Strength [x] Patient feels connected with others/family/visitors/staff [] Distress [] Loneliness/isolation [] Abandonment Spirituality of Patient [x] Person of Joann [] Attends Jain of their Joann [x] Believes in Prayer [] Reads Bible or Protestant materials [] There are Spiritual issues to be addressed Health Care Attorney Interventions [x] Prayer [x] Active listening [] Non-anxious presence [x] Spiritual/emotional support [] Crisis/trauma care [] Spiritual counseling [] Bereavement support [] Provided bereavement packet [] Provided Bible/devotional materials [] Provided toy/stuffed animal, coloring book to patient or family member [] Provided Communion [] Anointing/[place] [] Salvation [x] Completed spiritual assessment [] Other: Impact on Illness or Injury [] Angry [] Fearful [] Anxious [] Often cries [] Exhaustion [] Unable to work [] Unable to attend taoism [] Unable to walk/stand [] Unable to read [] Unable to drive [] Unable to eat/drink [] Unable to sleep [] Unable to be with family [] Patient intubated [] Other: Summary Time spent with patient 5 min
[2023-07-18 11:24] VITALS: BP 100/66; PULSE 83; RESP 16; TEMP 36.8; O2SAT 95
[2023-07-18 11:53] VITALS: BP 100/66; PULSE 83; RESP 16; TEMP 36.8; O2SAT 95
[2023-07-18 15:28] LABS: Lyme AB Screen <0.90 index
[2023-07-22 16:10] LABS: RMSF IGG NOT DETECTED; RMSF IGM NOT DETECTED
[2023-07-26 17:40] LABS: E. Chaffeensis AB IGG <1:64; E. Chaffeensis AB IGM <1:20
== END 2023-07-18 11:55 | disposition home or self-care (01) ==
LOC: ER 21:16 → MEDSURG 22:26
PROVIDERS: Admitting Provider Internal Medicine; Emergency Provider Emergency Medicine; PCP Family Medicine; Visit Provider Internal Medicine
DX: R18.8 Other ascites (principal); I10 Essential (primary) hypertension; E11.9 Type 2 diabetes mellitus without complications; C25.9 Malignant neoplasm of pancreas, unspecified; Z87.891 Personal history of nicotine dependence
CPT/HCPCS: 36415; 74177; 80053; 81003; 83690; 83735; 84100; 85025; 86618; 86666; 86757; 96372; 96374; 96375; 96376; 99285; G0378; J1650; J1940; J2270; J2405; J7030; Q9967

== ENCOUNTER 2023-08-07 10:45 | Oncology outpatient (recurring) (ONCR) | payer MEDICARE, SELFPAY ==
[2023-08-07 11:16] LABS: Basophils % 0.7 %; Eosinophils # 0.1 10^3/uL (0.0-0.8); Eosinophils % 1.8 %; Hematocrit 31.5 % (36-47); Lymphocytes % 17.5 %; Mean Corpuscular Hemoglobin 30.9 pg (27-33); Mean Corpuscular Volume 93.5 fl (85-98); Monocytes # 0.6 10^3/uL (0.2-0.9); Monocytes % 11.2 %; Neutrophils # 3.73 10^3/uL (1.8-7.7); Neutrophils % 68.6 %; Nucleated Red Blood Cells % 0 %; Platelet Count 154 10^3/cmm (157-399); Red Blood Count 3.37 10^6/uL (3.85-5.65); Red Cell Distribution Width 14.3 % (12.1-15.1); White Blood Count 5.44 10^3/uL (3.29-11.43)
[2023-08-07 11:44] LABS: Alanine Aminotransferase 25 U/L (0-33); Albumin Level 2.8 g/dL (3.5-5.2); Alkaline Phosphatase 279 U/L (35-105); Anion Gap 14.9 (5-19); Aspartate Amino Transferase 39 U/L (0-32); Blood Urea Nitrogen 9 mg/dL (8-23); Calcium 7.9 mg/dL (8.5-10.5); Carbon Dioxide 25 mmol/L (22-29); Chloride 101 mmol/L (98-107); Globulin 2.6 g/dL (1.3-4.6); Glucose 108 mg/dL (65-115); INR 1.16 (0.8-1.2); Osmolality Calculated 283 mOsm/kg (285-295); Potassium 3.9 mmol/L (3.5-5.1); Sodium 137 mmol/L (136-145); Thyroid Stimulating Hormone 5.12 uIU/mL (0.27-4.20); Total Bilirubin 1.3 mg/dL (0.15-1.2); Total Protein 5.4 g/dL (6.6-8.7)
== END 2023-08-13 23:59 | disposition home or self-care (01) ==
PROVIDERS: PCP Family Medicine; Visit Provider Internal Medicine Medical Oncology
DX: C25.0 Malignant neoplasm of head of pancreas; F32.A Depression, unspecified; S22.089A Unspecified fracture of T11-T12 vertebra, initial encounter for closed fracture; X58.XXXA Exposure to other specified factors, initial encounter; Z79.899 Other long term (current) drug therapy; Z53.9 Procedure and treatment not carried out, unspecified reason
CPT/HCPCS: 36591; 80053; 84443; 85025; 85610; 99214; 99215

== ENCOUNTER 2023-08-09 12:24 | Day surgery (SDC) | payer MEDICARE, SELFPAY ==
[2023-08-09 12:45] VITALS: BP 100/82; PULSE 83; RESP 16; TEMP 36.8; O2SAT 98; BMI 22.9
--- NOTE | 2023-08-09 13:03 | US_ITS ---
WS: [id number] ULTRASOUND-GUIDED THERAPEUTIC AND DIAGNOSTIC PARACENTESIS Procedure, risks, and complications have been explained to the patient. Consent is obtained. Utilizing aseptic technique and 1% buffered lidocaine, a small dermatome was made through which a 5 F rench Yueh catheter was inserted. Approximately 4000 ml of clear peritoneal fluid was obtained witho ut difficulty. No complications encountered. US/US paracentesis abd w [id number] IMPRESSION: Uncomplicated paracentesis yielding 4000 ml of peritoneal fluid. Peritoneal fluid specimen collected for analysis as requested.
[2023-08-09 14:42] LABS: Cyto Order Verification Order Verified
== END 2023-08-09 14:05 | disposition home or self-care (01) ==
PROVIDERS: Radiology Diagnostic Radiology; PCP Family Medicine; Visit Provider Internal Medicine Medical Oncology
PROC: (CPT 49082; principal; 2023-08-09 14:00)
DX: C25.9 Malignant neoplasm of pancreas, unspecified (principal)
CPT/HCPCS: 49083; 88112

== ENCOUNTER 2023-08-28 10:16 | Day surgery (SDC) | payer MEDICARE, SELFPAY ==
--- NOTE | 2023-08-28 10:42 | US_ITS ---
WS: [id number] ULTRASOUND-GUIDED THERAPEUTIC PARACENTESIS Procedure, risks, and complications have been explained to the patient. Consent is obtained. Utilizing aseptic technique and 1% buffered lidocaine, a small dermatome was made through which a 5 F rench Yueh catheter was inserted. Approximately 5100 ml of clear peritoneal fluid was obtained witho ut difficulty. No complications encountered. US/US paracentesis abd w [id number] IMPRESSION: Uncomplicated paracentesis yielding 5100 ml of peritoneal fluid.
[2023-08-28 10:44] VITALS: BP 126/84; PULSE 96; RESP 18; TEMP 36.3; O2SAT 94
--- NOTE | 2023-08-28 12:11 | SUR.OPER ---
5100ml of fluid drained
== END 2023-08-28 12:00 | disposition home or self-care (01) ==
PROVIDERS: Radiology Diagnostic Radiology; PCP Family Medicine; Visit Provider Nurse Practitioner Family
PROC: (CPT 49082; principal; 2023-08-28 11:30)
DX: R18.8 Other ascites (principal)
CPT/HCPCS: 49083